=== PATIENT | female | born 1940 | race Caucasian/White ===

== ENCOUNTER 2025-06-05 09:39 | Inpatient (IN) | payer MEDICARE, BC, SELFPAY ==
--- OUTSIDE RECORDS SUMMARY | 2023-10-21 06:00 | XMS_ITS | Continuity of Care Document ---
Author Organization [facility] Address [address] [place] [address] BRITTANY Hoover [address] Phone Care Team Providers Care Gasoline Engine Inspector Name Role Phone Lina Hinojosa DO Unavailable Unavailable Allergies, Adverse Reactions, Alerts Substance Reaction Status Criticality No Known Allergies Active No Inform ation Medications Medication Instructions Dosage Effective Dates (start - stop) Status Comments TYLENOL (unknown strength) take 1 tablet by oral route every 4 hours as needed Not Available - Active tramadol 50 mg tablet take 1 tablet by ORAL route 3 times every day max 3/day - No Longer Active Procedures Procedure Date INJECT TRIGGER POINTS, =/> 3 Betamethasone acet sod phosp INJ TRIGGER POINT, 09/01 MUSCL Betamethasone acet sod phosp OFFICE/OUTPATIENT VISIT, EST INJ TRIGGER POINT, 09/01 MUSCL OFFICE/OUTPATIENT VISIT, NEW Advance Directives Directive Yes / No Effective Date File Name No Information Encounters Encounter Description Practice Location Reason(s) For Visit Diagnoses Date Provider Providers Copied on Encounter [facility], [address] [facility] [place], [id number], [place] tel:[phone] [facility] [place] Myalgia, other site [place]ish [place]. [address] [facility] [place], [id number] , [place]. tel:[phone] Referring Provider: Zaki Joaquin, [address] [place], [address] . tel:[phone] OFFICE/OUTPAT IENT VISIT, [facility], [address] [facility] [place], [id number], [place] tel:[phone] [facility] [place] Flank pain (chief complaint) Pain in thoracic spineMyalgia, other siteIntercostal painOther mcfp (current) drug therapyOther spondylosis, lumbar regionChronic kidney disease, unspecified 3 Hinojosa Lina. [address] [facility] [place], [id number] , [place]. tel:[phone] Referring Provider: Zaki Joaquin, [address] [facility] [place], [address] . tel:[phone] OFFICE/OUTPAT IENT VISIT, [facility], [address] [facility] [place], [id number], [place] tel:[phone] [facility] Flank pain (chief complaint) Pain in thoracic spineIntercostal painOther mcfp (current) drug therapyMyalgia, other siteLow back pain 3 Hinojosa Lina. [address] [place], [id number] , [place]. tel:[phone] Referring Provider: Zaki Joaquin, [address] [place], [address] . tel:[phone] Family History Family Member Type Diagnosis Age At Onset No Information Payers Payer name Insurance type Covered republican ID Jairon uriostegui(s) Medicare MB [id number] Social History Type Description Quantity Date Captured Comments Alcohol Use Details Unknown Caffeine Use Details Unknown Tobacco Use Status No Information Smoking Status No Information Sex Female Chief Complaint And Reason For Visit No Information Reason For Referral Reason For Referral No Information Plan Of Treatment Date Type Action Status Goal Weight. Due on d ue Goal Medication Reconciliation. D ue on due Goal Tobacco Use. Due on 024 due Goal Update Social History. Due o n due Goal Zoster vaccine (1st). Due on due Goal PHQ-9. Due on du e Goal Unhealthy drug use screening . Due on due Goal Height. Due on d ue Goal Review Allergy List. Due on due Goal Weight. Due on d ue Goal Medication Reconciliation. D ue on due Goal PHQ-9. Due on du e Goal Height. Due on d ue Goal Zoster vaccine (1st). Due on due Goal Unhealthy drug use screening . Due on due Goal Review Allergy List. Due on due Goal Tobacco Use. Due on 023 due Goal Update Social History. Due o n due Goal Unhealthy drug use screening . Due on due Goal Weight. Due on d ue Goal Medication Reconciliation. D ue on due Goal PHQ-9. Due on du e Goal Review Allergy List. Due on due Goal Zoster vaccine (1st). Due on due Goal Update Social History. Due o n due Goal Height. Due on d ue Goal Tobacco Use. Due on 023 due History Of Present Illness Encounter Date Complaint History Of Prese nt Illness Flank pain Pain level is 10 . Duration is chronic. The problem occurs constantly and has not changed. Location of pain is right flank and R ribs. Symptom is aggravated by bending/stooping and movement. There is radiation to the back. Relieving factors include raising arms above head. Pertinent negatives include chills, diarrhea, dysuria, fever, nausea and vomiting. Comments: Manuel marcelino is an 82 y/o female here for her initial follow up regarding gradually worsening right rib pain that started 6 years ago following a slip and fall on ice. Primary pain is located under her right ribs along right flank/mid back and is described as constant with intermittent sharp spasms. Only improves when arms are raised above her head. Reports her pain has been the same since [facility]. S/p TPI's [facility], notes she felt 80% relief for only about 30 min and then her spasms returned. Feels the injections were in her painful spot though. She recently completed her lumbar MRI at [facility] as ordered [facility], inquires about results. Notes she does have kidney disease, but has been stable and having no symptoms. Not currently established with a marine oiler. No other concerns today. Flank pain Onset: sudden. P ain level is 8. Duration is chronic. The problem occurs constantly and is getting worse. Location of pain is right flank. Symptom is aggravated by movement. There are no relieving factors. Pertinent negatives include diarrhea, dysuria and fever. Comments: Manuel marcelino is an 82 y/o female here for initial consult regarding gradually worsening right rib pain that started 6 years ago following a slip and fall on ice, referred by a friend. Notes during the fall, she fell straight back and landed on upper back and right shoulder causing a rotator cuff tear, did not hit her head. Endorses she was not evaluated after the fall as her was going through open heart surgery. Her primary pain is located under her right rib along right flank and is described as constant with intermittent sharp spasms. Does not wrap around to front and denies any numbness. Pain has been making sleep difficult due to positional pain. She has only been seen in the ER when pain flares ups. Has never been evaluated by a specialist. Reports she did have a prior MRI several years ago due to nerve pain she was having in back. No recent imaging. She has been going to a chiropractor intermittently with some relief, but relief is very temporary. Also doing acupuncture. She completed one session of PT at her 's alf, although her 4 weeks ago and she did not return. Tearful when discussing. She has been doing home exercises that she learned during her session.Notes she's had SE's with a lot of medications. She is currently managing her pain with Tylenol, takes sparingly due to GI upset. Also cannot take NSAID's due to issues with bleeding. She did try gabapentin in the past, but made her feel sick. She had good relief with oxycodone 5 mg at max 1/day that was prescribed after an ER visit for 30 days. She is not interested in being on medications. Additionally states she's had her bone density tested and was told it is similar to an 18 year old, no osteopenia or osteoporosis. Patient is interested in possible injection options we have to offer. No other concerns today. Functional Status Date Functional Assessmen t No Information Instructions Date Instruction Additional Infor mari No Information Assessments Type Assessment Date assessment Myalgia, other site Patient Care Teams Name Effective Dates (start - stop) Status Members No Information
--- OUTSIDE RECORDS SUMMARY | 2023-10-21 06:00 | XMS_ITS | Continuity of Care Document ---
Author Organization [facility] Address [address] [place] [address] BRITTANY Hoover [address] Phone Care Team Providers Care Cracker Off Name Role Phone Lina Hinojosa DO Unavailable [...] Diagnoses Date Provider Providers Copied on Encounter [facility], [address] [facility] [place], [id number], [place] tel:[phone] [facility] [place] Myalgia, other site Ashish [place]. [address] [facility] [place], [id number] , [place]. tel:[phone] Referring Provider: Zaki Joaquin, [address] [place], [address] . tel:[phone] OFFICE/OUTPAT IENT VISIT, [facility], [address] [facility] [place], [place], [id number], [place] tel:[phone] [facility] [place] Flank pain (chief complaint) Pain in thoracic spineMyalgia, other siteIntercostal painOther long-term (current) drug therapyOther spondylosis, lumbar regionChronic kidney disease, unspecified 3 Hinojosa Lina. [address] [facility] [place], [id number] , [place]. [phone] Referring Provider: Zaki Joaquin, [address] [facility] [place], [address] . tel:[phone] OFFICE/OUTPAT IENT VISIT, [facility], [address] [facility] [place], [id number], [place] tel:[phone] [facility] Flank pain (chief complaint) Pain in thoracic spineIntercostal painOther long-term (current) drug therapyMyalgia, other siteLow back pain 3 Hinojosa Lina. [address] [facility] [place], [id number] , [place]. tel:[phone] Referring Provider: Zaki Joaquin, [address] [facility] [place], [address] . tel:[phone] Family History Family Member Type Diagnosis Age At Onset No Information Payers Payer name Insurance type Covered alliance party ID Jairon uriostegui(s) Medicare MB [id number] Social History Type Description Quantity Date Captured Comments Alcohol Use Details Unknown Caffeine Use Details Unknown Tobacco Use Status No Information Smoking Status No Information Sex Female Chief Complaint And Reason For Visit No Information Reason For Referral Reason For Referral No Information Plan Of Treatment Date Type Action Status Goal Zoster vaccine (1st). Due on due Goal Update Social History. Due o n due Goal Tobacco Use. Due on 024 due Goal Medication Reconciliation. D ue on due Goal Weight. Due on d ue Goal Review Allergy List. Due on due Goal Height. Due on d ue Goal Unhealthy drug use screening . Due on due Goal PHQ-9. Due on du e Goal Update Social History. Due o n due Goal Tobacco Use. Due on 023 due Goal Weight. Due on d ue Goal Medication Reconciliation. D ue on due Goal PHQ-9. Due on du e Goal Height. Due on d ue Goal Zoster vaccine (). Due on due Goal Unhealthy drug use screening . Due on due Goal Review Allergy List. Due on due Goal Tobacco Use. Due on 023 due Goal Height. Due on d ue Goal Update Social History. Due o n due Goal Zoster vaccine (). Due on due Goal Review Allergy List. Due on due Goal PHQ-9. Due on du e Goal Medication Reconciliation. D ue on due Goal Weight. Due on d ue Goal Unhealthy drug use screening . Due on due History Of Present Illness Encounter Date Complaint History Of Prese nt Illness Comments: Manuel marcelino is an 82 y/o [...] her pain has been the same since [facility]. S/p TPI's [facility], notes she felt 80% relief for only about 30 min and then her spasms returned. Feels the injections were in her painful spot though. She recently completed her lumbar MRI at [facility] as ordered [facility], inquires about results. Notes she does have kidney disease, but has been stable and having no symptoms. Not currently established with a spinning machine tender. No other concerns today. Flank pain Pain level is 10 . Duration is chronic. The problem occurs constantly and has not changed. Location of pain is right flank and R ribs. Symptom is aggravated by bending/stooping and movement. There is radiation to the back. Relieving factors include raising arms above head. Pertinent negatives include chills, diarrhea, dysuria, fever, nausea and vomiting. Flank pain Onset: sudden. P ain level [...] one session of PT at her 's custodial, although her 4 weeks ago and she [...]
[2025-06-05] VITALS (50 sets, daily range): BP systolic 127–201; BP diastolic 55–95; PULSE 54–76; RESP 6–31; TEMP 35.6–36.8; O2SAT 96–100; BMI 22.0; BMI 22.1
--- OUTSIDE RECORDS SUMMARY | 2025-06-05 09:43 | XMS_ITS | Encounter Summary ---
Author Organization [facility] Address [address] [place] [address] Care Team Providers Care Hotel Or Motel Receptionist Name Role Phone Unavailable Primary Care Provider Unavailabl e Encounter Details Date Type Department Care Team (Late st Contact Info) Description 03/14/2025 Notes/Orders [facility] [address] [place] [address] Nomi Romero MD [address] [facility] [address] [place], [place] [address] Social History Tobacco Use Types Packs/Day Years Used Date Smoking Tobacco: Never Smokeless Tobacco: Never Comments Unknown Sex and Gender Information Value Date Recorded Sex Assigned at Not on file Legal Sex Female 7:12 AM CDT Gender Identity Not on file Sexual Orientation Not on file documented as of this encounter Plan of Treatment Not on file documented as of this encounter Visit Diagnoses Not on filedocumented in this encounter
--- OUTSIDE RECORDS SUMMARY | 2025-06-05 09:44 | XMS_ITS | Clinical Summary ---
Author Organization [facility] Address [address] [place] [address]. [place] [address] Care Team Providers Care Export Freight Manager Name Role Phone [facility], [facility] Primary Care Provider Allergies Active Allergy Reactions Criticality Noted Date Comments Ciprofloxacin Cough 07/04/2010 Other reaction(s): Edema, Headache Codeine 08/06/2015 Other reaction(s): Hallucinations Codeine Sulfate 10/24/2012 hallucinate Metoprolol Cough 12/22/2014 Other reaction(s): Headache Morphine Nausea and Vomiting 10/21/2004 Morphine Sulfate 10/24/2012 hallucinate Thimerosal (Thiomersal) Other (See Comments) 06/24/2016 Flu like symptoms Medications atenolol (TENORMIN) 100 MG tablet Take 100 mg by mouth daily Active triamterene-HCT Z (DYAZIDE) 37.5-25 MG capsule Take 1 capsule by mouth every morning Active levothyroxine (SYNTHROID/LEVO THROID) 112 MCG tablet Take 112 mcg by mouth daily Active atorvastatin (LIPITOR) 20 MG tablet Take 20 mg by mouth daily Active Active Problems Problem Noted Date Diagnosed Date Pyelonephritis 11/02/2021 Acute cystitis without hematuria 11/02/2021 Ureterolithiasis 09/29/2021 Resolved Problems Problem Noted Date Diagnosed Date Resolved Date Dupuytren's contracture of hand 08/14/2011 09/15/2011 Pain in hand 08/14/2011 09/15/2011 Stiffness of joint, not else where classified, hand 08/14/2011 09/15/2011 Reflex sympathetic dystrophy of upper extremity 08/14/2011 09/15/2011 Overview (06/01/2015): Problem list name updated by automated process. Provider to review Other postprocedural status(V45.89) 08/14/2011 09/15/2011 Family History Medical History Relation Comments Heart Disease Brother Heart Disease Father Hypertension Mother Relation Status Comments Brother Father Mother Social History Tobacco Use Types Packs/Day Years Used Date Smoking Tobacco: Never Smokeless Tobacco: Never Alcohol Use Standard Drinks/Week Comments No 0 (1 standard drink = 0.6 oz pur e alcohol) Adolescent Education Answer Date Record ed Getting School Help Needed Not on file 05/31 Comments No Sex and Gender Information Value Date Recorded Sex Assigned at Not on file Legal Sex Female 4:24 AM PUBLIC RELATIONS OFFICER Gender Identity Not on file Sexual Orientation Not on file Last Filed Vital Signs Vital Sign Reading Time Taken Comments Blood Pressure 173/83 04/20/2023 2:20 PM CDT Pulse 62 04/20/2023 2:20 PM CDT Temperature 36.6 C (97.9 F) 04/20/2023 2:20 PM CDT Respiratory Rate 18 04/20/2023 9:03 AM CDT Oxygen Saturation 100% 04/20/2023 2:20 PM CDT Inhaled Oxygen Concentration - - Weight 73.1 kg (161 lb 3.2 oz) 11/02/2021 9:03 P M PUBLIC RELATIONS OFFICER Height 172.7 cm (5' 8) 11/02/2021 9:03 PM PUBLIC RELATIONS OFFICER Body Mass Index 24.51 11/02/2021 9:03 PM PUBLIC RELATIONS OFFICER Plan of Treatment Health Maintenance Due Date Last Done Comments ADVANCE CARE PLANNING 1940 ANNUAL REVIEW OF HM ORDERS 1940 DEXA 1940 LIPID 1940 TSH W/FREE T4 REFLEX 1940 FALL RISK ASSESSMENT 2005 RSV VACCINE (1 - 1-dose 75+ series) 2015 DTAP/TDAP/TD VACCINE (2 - Td or Tdap) 12/10/2022 12/10/2012, 10/14/2005, 08/31/1995 MEDICARE ANNUAL WELLNESS VISIT 02/10/2024 02/09/2023, 02/04/2022, 01/18/2021 PHQ-2 (once per calendar year) 2024 COVID-19 VACCINE (2024-2 6 season) 2025 06/02/2022, 12/26/2020, 12/05/2020 INFLUENZA VACCINE (#1) 2025 06/30/2007 PNEUMOCOCCAL VACCINE 50+ YEARS Completed 02/09/2018, 12/18/2014, 10/20/2007 ZOSTER VACCINE Completed 07/30/2018, 05/19/2018, 10/29/2009 HPV VACCINE (No Doses Required) Completed MENINGITIS VACCINE Aged Out No longer eligible based on patient's age to complete this topic Medical Devices Explanted Type Area Supervisory Cbp Officer Device Identifier Shelf Expiration Date Model / Serial / Lot Stent Ureteral Polaris Ultra [id number] - [id number] Implanted:Qty: 1 on 09/30/2021 by Darryl Valenzuela MD at [facility] Explanted:Qty: 1 on 10/11/2021 at [facility] Stent Right: Ureter [employer] 07/23/2024 [id number] / / [id number] [place] [id number] [facility] [place] [address] Advance Directives For more information, please contact: [phone] * Full Code (Latest Code Status on File) Date Activated Date Inactivated Comments 11/02/2021 9:07 PM 11/04/2021 2:25 PM All basic and advanced life-sustaining interventions are performed as appropriate Question Answer Comments Code status determined by: Discussion with celeste nt/ legal decision maker * Full Code Date Activated Date Inactivated Comments 09/30/2021 1:57 AM 09/30/2021 7:33 PM All basic an d advanced life-sustaining interventions are performed as appropriate Question Answer Comments Code status determined by: Discussion with celeste nt/ legal decision maker Care Teams Export Freight Manager Relationship Specialty Start Date End Date [facility], [address] [address] PCP - General 04/20/23
--- OUTSIDE RECORDS SUMMARY | 2025-06-05 09:44 | XMS_ITS | Clinical Summary ---
Author Organization [facility] Address [address], [place] [address] Care Team Providers Care As400 Operator Name Role Phone Unavailable Primary Care Provider Unavailabl e Source Comments You are receiving this document as you are listed as the primary care provider,follow-up provider, or the patient has been referred to you for consultation.This is in compliance with the Medicare and[facility] Clinicca[facility] EHR Incentive Program,which states Providers who transition their patient to another setting of careor provider of care or refers their patient to another provider of care shouldprovide summary care record for each transition of care or referral. [id number] Allergies Active Allergy Reactions Criticality Noted Date Comments Codeine 08/06/2015 Morphine 08/06/2015 Medications ATENolol (AKA TENORMIN) 100 MG tablet Take 1 Tablet (100 mg) by mouth daily. 08/06/2015 Active simvastatin (AKA ZOCOR) 10 MG tablet Take 1 Tablet (10 mg) by mouth daily at bedtime. 08/06/2015 Active levothyroxine (AKA SYNTHROID) 100 MCG tablet Take 1 Tablet (100 mcg) by mouth daily. 08/06/2015 Active hydrochlorothia zide (AKA HYDRODIURIL) 12.5 MG tablet Take 1 Tablet (12.5 mg) by mouth daily. 08/06/2015 Active HYDROcodone-melisa taminophen (NORCO) 5-325 MG tablet Take 1-2 Tablets by mouth every 6 hours as needed. 12 Tablet 11/14/2024 Active Active Problems Problem Noted Date Diagnosed Date Dupuytren's contracture of right hand 07/21/2017 Shoulder tendinitis 08/06/2015 Bicipital tendinitis of shoulder 08/06/2015 Acromioclavicular joint arthritis 08/06/2015 Encounters Date Type Department Care Team Description 03/14/2025 Notes/Orders [facility] [address] [place] [address] Nomi Romero MD from Last 3 Months Social History Tobacco Use Types Packs/Day Years Used Date Smoking Tobacco: Never Smokeless Tobacco: Never Comments Unknown Sex and Gender Information Value Date Recorded Sex Assigned at Not on file Legal Sex Female 7:12 AM CDT Gender Identity Not on file Sexual Orientation Not on file Last Filed Vital Signs Vital Sign Reading Time Taken Comments Blood Pressure 163/62 11/14/2024 9:31 AM CDT RLE Pulse 63 11/14/2024 9:31 AM CDT Temperature 36.5 C (97.7 F) 11/14/2024 8:52 AM CDT Respiratory Rate 16 11/14/2024 9:31 AM CDT Oxygen Saturation 99% 11/14/2024 9:31 AM CDT Inhaled Oxygen Concentration - - Weight 67.4 kg (148 lb 9.6 oz) 11/14/2024 6:11 A M CDT Height 172.7 cm (5' 8) 07/21/2017 1:52 PM WIRE FRAME LAMP SHADE MAKER Body Mass Index 22.59 07/21/2017 1:52 PM WIRE FRAME LAMP SHADE MAKER Plan of Treatment Health Maintenance Due Date Last Done Comments Medicare Annual Wellness Visit 1940 RSV Vaccine (1 - 1-dose 75+ series) 2015 COVID-19 Vaccine ( - 2024-2 6 season) 2025 06/02/2022, 12/26/2020, 12/05/2020 Influenza Vaccine (#1) 2025 DTaP/Tdap/Td Vaccine (3 - Tdap) 11/10/2034 11/10/2024, 12/10/2012 Pneumococcal Vaccine 50+ Yrs Completed 07/2018, 12/18/2014, 10/20/2007 Zoster/Shingles Vaccine Completed 07/30/20 18, 05/19/2018, 10/29/2009 Dexa Completed 02/15/2024, 02/03/2017 HepA Vaccine Aged Out No longer eligi ble based on patient's age to complete this topic HepB Vaccine Aged Out No longer eligi ble based on patient's age to complete this topic Hib Vaccine Aged Out No longer eligi ble based on patient's age to complete this topic MCV4 Vaccine Aged Out No longer eligi ble based on patient's age to complete this topic Meningococcal B Vaccine Aged Out No l onger eligible based on patient's age to complete this topic Insurance [facility] MEDICARE SUPPLEMENT MEDICARE [facility] MEDICARE SUPPLEMENT MEDICARE Advance Directives * Full Code (Latest Code Status on File) Date Activated Date Inactivated Comments 11/14/2024 7:11 AM 11/14/2024 11:49 AM
--- OUTSIDE RECORDS SUMMARY | 2025-06-05 09:44 | XMS_ITS | Patient Health Record ---
Author Organization [facility] Address [address] [place] [address] Care Team Providers Care Reproduction Artist Name Role Phone Cheri Ellen Primary Care Provider DAVINA Akins Unavailable [phone] Win Siu Unavailable Unavailable Allergies Allergen (clinical drug ingredient) Drug/Non Drug Allergy documented on EMR Reaction Allergy Type Onset Date Status Codeine Phosphate Unknown Drug Allergy Active Morphine Sulfate Unknown Drug Allergy Active Reason For Referral No Information Medications Medication SIG (Take, Route, Frequency, Duration) Notes Start Date End Date Status Levothyroxine Sodium 112 MCG Tablet 1 tablet in the morning on an empty stomach Orally Once a day; Duration: 30 day(s) Active Simvastatin 20 MG Tablet 1 tablet in the evening Orally Once a day; Duration: 30 day(s) Active Aspir-Low 81 MG Tablet Delayed Release 1 tablet Orally Once a day; Duration: 30 day(s) Active Atenolol 100 MG Tablet 1 tablet Orally O nce a day; Duration: 30 day(s) Active Triamterene-HCTZ 37.5-25 MG Tablet 1 tablet in the morning Orally Once a day; Duration: 30 day(s) Active Social History Tobacco Use: Social History Observation Description Date Details (start date - stop date) Never Smoker NA - NA Social History : Social Info Question Answer Notes How often do you consume alcohol? Answer: never Recreational drug use Social Info Question Answer Notes Did you ever use recreational drugs? Answer: No Tobacco Use: Social Info Question Answer Notes Tobacco use/smoking Are you a nonsmoker Plan Of Treatment No Information Insurance Providers Payer Name Payer Address Payer Phone Subscriber Number Group Number Insured Name Patient Relationship to Insured Coverage Start Date Coverage End Date MEDICARE [address] [place] [address] [id number] Cecilia Max Self - patient is the insured 6 [facility] MEDIC[facility] [address] [place], [place] [id number] Cecilia Max Self - patient is the insured Medical (General) History Medical History History ICD Code Cataracts Breast cancer Surgical History Surgery Date(Month/Year) Tonsillectomy Appendectomy Mastectomy Hospitalization History Reason Date(Month/Year) See above
--- NOTE | 2025-06-05 09:52 | ED_ITS ---
HPI - General Adult General Date Seen: 06/05/25 Chief complaint: Weakness Stated complaint: Weak, trouble breathing, jaw hurts, dizzy, vision Time Seen by Provider: 06/05/25 09:52 History of Present Illness HPI narrative: 84 yo F with a past medical history of pulmonary fibrosis, chronic kidney disease, hypothyroidism, hyperlipidemia, prediabetes, history of breast cancer in 1988, right lung calcified granuloma stable since 1991. Patient notes multiple symptoms including bilateral pulsing and pounding in her ears (sounds like pulsatile tinnitus) that is been present for the past several weeks, also sometimes flashing lights in her vision, most notable in the mornings, also a feeling of shortness of breath like her oxygen is low (although her oxygen typically runs 100%). She was actually due to have a and I checked this morning at the eye doctor but came here to the ER in [place] instead because she feels like she is more short of breath than she has been. History from the patient is little bit difficult to get because she is significantly anxious and jumping around. It sounds like she has been generally healthy. She had her checkup with her doctor in January or February and was healthy at that time. She has no known history of coronary disease, vascular disease, anemia, cancer, diabetes, or lung disease. Beginning about 7 weeks or so ago she started noticing symptoms of a pulsing sound in her her ears. However with clarification it sounds like it is mostly in her left ear, not her right. Not really pain, just a whooshing pulsing sound. It has been getting worse and in particular got worse overnight last night. She has already had MRIs that were apparently normal-see below. She does not really have headache. Sometimes she gets cramps of pain in the left side of her neck, but that is not occurring lately. She does note that for the past few weeks when she wakes up in the morning she gets kind of a dizzy feeling when she stands up and gets flashing lights affecting both of her eyes that tend to happen for about less than half an hour after she 1st wakes up. Her eyes are normal the remainder of the day. She had schedule an appointment to see the local eye clinic today because of the feeling of weakness and discomfort in her jaw and chest. She also notes that she has had progressively worsening dyspnea on exertion. [place] and has to walk about an 8th of a mi out to her mailbox. However for the past few weeks she has not been able to do so. She has not even tried because she knows she would gets so short of breath she would collapse. It has gotten to the point now where she can not even really walk up a full flight of stairs without getting very weak and short of breath. She has not really had any chest pain, cough. No swelling in her legs. This morning at about 8 or 830 when she was sitting in a chair she just felt a funny feeling in her chest and her jaw felt weak on both sides and she just felt weaker than normal. She was worried that her heart might stop her that she was not getting enough oxygen. She came here to the ER. She has not had symptoms like that up until this morning. Nothing else changed overnight. No orthopnea. No new swelling in her legs. No abdominal pain. No back pain. No fever. No cough. Per [facility] medical records Saw Dr. Cardozo in February for an annual checkup. Per that note she has intermittent back pain less severe than last year. Uses tramadol p.r.n.. Has known thoracic degenerative disc disease. Blood pressure readings at home between 130 and 134 systolic. On Maxzide and atenolol. Memory, hearing, vision normal. Had a visit with the [facility] clinic on 05/15. Complaints included shortness of breath, throbbing in her head for about 2 weeks, fatigue. Poor sleep .. Per note... 84 y.o. female with h/o HTN, pulmonary fibrosis, stage 3a CKD, and prediabetes, who presents with shortness of breath that started 2 weeks ago. She has shortness of breath when she walks up a few stairs or walking to her mailbox. At the top of the stairs, she feels dizzy for a few seconds. After walking, her arms and legs feel weird and weak. She does not have shortness of breath at rest, can speak normally in sentences, and can lie down. Laying down helps with her breathing. She feels like she has a brick on her head. She is nauseated, tired, and has pain behind her left ear. There is a pulsating sound in her left ear that has been constantp. Labs from 05/15 Sodium 139, potassium 3.5, chloride 100, bicarb 30, BUN 31, creatinine 1.29 (pre vious baseline 1.08) glucose 148 D-dimer 0.3 ProBNP 389 Chest x-ray 05/15 IMPRESSION: Chronic COPD. No acute infiltrate or CHF. MRI brain 05/20 IMPRESSION: 1. No radiographic evidence of acute intracranial abnormalities. 2. Mild supratentorial white matter changes that are non-specific, but statistically most likely related to chronic small vessel ischemic disease. IMPRESSION: Unremarkable MRA of the head as far as visualized. IMPRESSION: Unremarkable MRA of the neck as far as visualized. Most recent hemoglobin in her chart was from 11/10/2024. On that date white count was 5, hemoglobin was 12, platelet count was 122. Related Data Home Medications ?Medication ?Instructions ?Recorded ?Confirmed atenolol 100 mg tablet 100 mg PO DAILY 06/05/2502/22 levothyroxine 125 mcg tablet 125 mcg PO DAILY 06/05/25 06/05/25 ondansetron 4 mg disintegrating 4 mg PO Q8H PRN nausea /vomiting 06/05/25 06/05/25 tablet tramadol 50 mg tablet 50 mg PO DAILY PRN severe pa in 06/05/25 06/05/25 triamterene 37.5 1 tab PO DAILY 06/05/2502/22 mg-hydrochlorothiazide 25 mg tablet Allergies Allergy/AdvReac Type Severity Reaction Status Date / Time Opioids - Morphine Analogues AdvReac Intermediate Verified 06/05/25 10:10 codeine AdvReac Verified 06/05/25 10:10 Exam Narrative: Exam Narrative: Constitutional: Appears well-developed and well-nourished. Alert. Conversant. Non toxic. HENT: Head: Atraumatic. No depressed skull fracture, Raccoon Eyes, Edmond's sign, or hemotympanum. Face normal. TMs normal No pulsatile swelling over the temporal arteries. TMs normal. Mastoids normal. Pinna are normal bilaterally. Nose: Nose normal. Mouth/Throat: Oral mucosa is clear and moist. no trismus. Pharynx normal. To nsils symmetric. No tonsillar enlargement, erythema, or exudate. No pain with opening and closing her jaw. No TMJ pain. Eyes: Conjunctivae pale. EOM normal. Pupils equal, round, and reactive to light. No scleral icterus. Neck: Normal range of motion. Neck supple. No tracheal deviation present. Cardiovascular: Normal rate, regular rhythm. No gallop. No friction rub. No murmur heard. Symmetric radial artery pulses Pulmonary/Chest: Effort normal. No stridor. No respiratory distress. No wheezes. No rales. No rhonchi . No tenderness. Abdominal: Soft. Bowel sounds normal. No distension. No mass. No pulsatile mass. No tenderness. No rebound. No guarding. No CVA tenderness. Musculoskeletal: RUE: Normal range of motion. No tenderness. No deformity LUE: Normal range of motion. No tenderness. No deformity RLE: Normal range of motion. No edema. No tenderness. No deformity LLE: Normal range of motion. No edema. No tenderness. No deformity Lymph: No cervical adenopathy. Neurological: Mental status normal. Attention normal. Alert and oriented x3. GCS 15. Memory normal. Speech fluent. Cognition normal. Cranial Nerves intact II-XII except I did not formally test gag or visual acuity. Normal strength of the muscles of mastication. No signs of facial droop. I do not see any progressive weakness/ here suggesting myasthenia gravis EOMI. Palate elevates symmetrically and tongue protrudes in the midline. Strength: 5/5 trapezius on the right and left 5/5 deltoid on the right and left 5/5 biceps on the right and left 5/5 triceps on the right and left 5/5 automatic presser on the right and left 5/5 thumb opposition on the right and le ft 5/5 finger abduction on the right and le ft 5/5 hip flexors (L3) on the right and le ft 5/5 quadriceps (L4) on the right and lef t 5/5 tibialis anterior on the right and l eft 5/5 EHL (L5) on the right and left 5/5 gastrocnemius (S1) on the right and left 5/5 hamstring on the right and left Sensation intact to light touch in both upper extremities (C4-T1) Sensation intact to light touch in Both lower extremities (L4-S1). Finger to nose and coordination normal. Gait not assessed due to weakness Skin: Skin is warm and dry. No rash noted. No pallor. Normal capillary refill. Psychiatric: Normal mood. Anxious but very polite. Const: Vital Signs, click to edit/add: Vital Signs - 24 hr 06/05/25 10:03 06/05/25 10:07 06/05/25 10:15 Temperature 97.4 F L Pulse Rate 60 64 Pulse Rate [Pulse Oximeter] 73 Respiratory Rate 20 6 L 14 Blood Pressure 190/80 H Blood Pressure [Ri ght Upper Arm] 201/95 H Pulse Oximetry 100 99 100 [facility] Room Air 06/05/25 10:30 06/05/25 10:32 06/05/25 10:33 Temperature Pulse Rate 64 62 63 Pulse Rate [Pulse Oximeter] Respiratory Rate 10 L 20 31 H Blood Pressure 171/65 H Blood Pressure [Ri ght Upper Arm] Pulse Oximetry 100 100 100 [facility]xygen Delivery [facility] 06/05/25 10:45 06/05/25 11:00 06/05/25 11:02 Temperature Pulse Rate 59 L 56 L 54 L Pulse Rate [Pulse Oximeter] Respiratory Rate 7 L 18 16 Blood Pressure 156/58 H Blood Pressure [Ri ght Upper Arm] Pulse Oximetry 99 100 99 Oxygen Delivery [facility] 06/05/25 11:03 06/05/25 11:15 06/05/25 11:30 Temperature Pulse Rate 55 L 60 64 Pulse Rate [Pulse Oximeter] Respiratory Rate 14 11 L 20 Blood Pressure Blood Pressure [Ri ght Upper Arm] Pulse Oximetry 99 99 100 Oxygen Delivery [facility] 06/05/25 11:32 06/05/25 11:45 06/05/25 12:00 Temperature Pulse Rate 66 64 Pulse Rate [Pulse Oximeter] Respiratory Rate 19 16 25 H Blood Pressure 170/71 H Blood Pressure [Ri ght Upper Arm] Pulse Oximetry 100 99 Oxygen Delivery [facility] 06/05/25 12:02 06/05/25 12:03 06/05/25 12:15 Temperature Pulse Rate Pulse Rate [Pulse Oximeter] Respiratory Rate 8 L 15 13 Blood Pressure 156/74 H Blood Pressure [Ri ght Upper Arm] Pulse Oximetry Oxygen Delivery [facility] 06/05/25 12:30 06/05/25 12:32 06/05/25 12:45 Temperature Pulse Rate Pulse Rate [Pulse Oximeter] Respiratory Rate 13 16 14 Blood Pressure 140/88 H Blood Pressure [Ri ght Upper Arm] Pulse Oximetry Oxygen Delivery [facility] 06/05/25 13:00 06/05/25 13:02 06/05/25 13:05 Temperature 96.6 F L 96.6 F L Pulse Rate 65 61 62 Pulse Rate [Pulse Oximeter] Respiratory Rate 13 14 16 Blood Pressure 157/61 H 157/61 H Blood Pressure [Ri ght Upper Arm] Pulse Oximetry 98 98 99 Oxygen Delivery [facility] Room Air 06/05/25 13:22 Temperature 97.2 F L Pulse Rate 62 Pulse Rate [Pulse Oximeter] Respiratory Rate 16 Blood Pressure 147/61 H Blood Pressure [Ri ght Upper Arm] Pulse Oximetry 97 Oxygen Delivery [facility] Room Air Course Vital Signs Vital signs: Initial Vital Signs Temperature 97.4 F L 06/05/25 10:03 Temperature Source Temporal Artery Scan 06/05/25 10:03 Pulse Rate 73 06/05/25 10:03 Respiratory Rate 20 06/05/25 10:03 Blood Pressure 201/95 H 06/05/25 10:03 Blood Pressure Mean 130 H 06/05/25 10:03 Blood Pressure Position Sitting 06/05/25 10:03 Pulse Oximetry 100 06/05/25 10:03 Oxygen Delivery Method Room Air 06/05/25 10:03 Vital Signs Temperature 97.4 F L 06/05/25 10:03 Pulse Rate 73 06/05/25 10:03 Respiratory Rate 20 06/05/25 10:03 Blood Pressure 201/95 H 06/05/25 10:03 Pulse Oximetry 100 06/05/25 10:03 Oxygen Delivery Method Room Air 06/05/25 10:03 Temperature 97.2 F L 06/05/25 13:22 Pulse Rate 62 06/05/25 13:22 Respiratory Rate 16 06/05/25 13:22 Blood Pressure 147/61 H 06/05/25 13:22 Pulse Oximetry 97 06/05/25 13:22 Oxygen Delivery Method Room Air 06/05/25 13:22 Medications Administered Medications: Generic Name Dose Route Start Last Admin Trade Name Freq PRN Reason Stop Dose Admin Sodium Chloride 250 ml 06/05/25 11:23 06/05/25 13:11 0.9 % Sodium Chloride 500 Ml IV 06/06/25 23:59 250 ml ONCE PRN Administration Discontinued Medications Generic Name Dose Route Start Last Admin Trade Name Freq PRN Reason Stop Dose Admin Aspirin 324 mg 06/05/25 10:42 06/05/25 10:48 Aspirin 81 Mg Tab.Chew PO 06/05/25 10:43 324 mg ONCE ONE Administration Sodium Chloride 1,000 mls @ 1,000 mls/hr 06/05/25 10:45 06/05/25 11:51 0.9 % Sodium Chloride 1000 Ml IV 06/05/25 11:44 Infused .Q1H PEACE Infusion Methylprednisolone Sodium Succinate 125 mg 06/05/25 11:41 06/05/25 11:49 Methylprednisolone Sod Succ 62.5 Mg/Ml (125) IVP 06/05/25 11:42 125 mg ONCE ONE Administration Medical Decision Making MDM Narrative Medical decision making narrative: 84-year-old female with a very complicated presentation to the ER. She has multiple complaints that are co mingled. These include pus out tinnitus mostly of her left ear for the past 7 or 8 weeks, progressively worsening dyspnea on e xertion, lightheadedness and presyncope with flashing lights in her eyes, as well as a funny feeling of chest discomfort and jaw pain this morning. 1. Cardiovascular. Patient has no known history of coronary artery disease, stents. No history of CHF. Chest x-ray done in the [facility] a few weeks ago was clear and showed no evidence for pulmonary edema. BNP was normal previously. She does not have any murmurs on my exam to suggest that she is developing a severe aortic stenosis. With her dyspnea on exertion consider possible progressively worsening CHF. Blood pressure is 200/95 but came down to about 156/58 when she was settled. I think a lot of her hypertension was related to significant anxiety at the time of presentation.be Repeat chest x-ray today shows clear lungs. I do not see any pulmonary edema. N terminal proBNP is fairly low at 323. She is having substernal chest discomfort and jaw weakness and pain this morning. Consider angina. EKG shows nonspecific T-wave flattening but no ST segment elevation or depression. Initial troponin is normal at 0.01. Given time since onset of her chest symptoms this morning , we did check delta troponins they are normal. At this point no clear evidence for ACS. Suspect that her symptoms are driven by her anemia. May need further workup with follow-up stress testing or ECHO depending on response to transfusion. 2. Pulmonary. Does have several weeks of progressively worsening dyspnea on exertion. She says she has gotten so short of breath this that she really can not go of more than 6 steps or go out to check her mail because she gets so we cannot of breath. She had a chest x-ray a few weeks ago in her doctor told her that she might have COPD. However she does not really have any known history of asthma/COPD. No wheezing or coughing. Lung sounds clear on my auscultation today. Chest x-ray shows no evidence for pneumothorax or ruptured bleb. No evidence for pulmonary edema. No focal infiltrate to suggest pneumonia. Consider possible PE. Screening D-dimer was normal in clinic a couple weeks ago. Given progressive worsening dyspnea we did double check a D-dimer today and it is 0.83 which when adjusted for age is low risk. Therefore will hold off on CT scan. 3. Hematologic. CBC shows pancytopenia today with a white count of 3.8, hemoglobin critically low at 6.4, and thrombocytopenia with a platelet count 50. Unclear etiology. Patient denies any recent black or bloody stools. Hemoccult negative. Suspect this may be a bone marrow deficiency or myelodysplasia. 4. Vascular/autoimmune. With the patient's pulsatile tinnitus and report of episodic disturbance of vision, consider a vasculitis such as giant cell arteritis or temporal arteritis. ESR is elevated at 86. CRP is low. empiric dose of Solu-Medrol here in the ER. I suspect that her visual symptoms are probably related to her anemia. If they get better after transfusion, she probably does not need any further workup for vasculitis 5. Renal/electrolytes. BUN and creatinine normal. Sodium mildly low at 134. 6. Infectious disease. No fever or clear evidence for sepsis. Screening lactic acid is elevated at 3.2 which I think reflects anemia and dehydration rather than the presence of an acute infection or sepsis. 7. Psychiatric. There is a significant under pinning of anxiety when the patient presented which made it difficult for even describe sequence of her symptoms. With effort were able to get calm and more detailed history, above. This point I do not think anxiety is the primary cause of any of her symptoms. 8. GI. No abdominal pain. No recent black or bloody stools. Doubt GI bleeding. Screening occult blood stool here in the ER is negative. 9. Disposition. It is clear the patient will require hospitalization for transfusion and further workup. Discussed with our hospitalist, Dr. Golden. Lab Data Labs: Lab Results 06/05/25 06/05/25 06/05/25 Range/Units 10:05 10:10 11:43 WBC 3.88 L (4.50-11.00) K/uL RBC 1.62 L (4.00-5.20) m/uL Hgb 6.4 L* (12.0-16.0) gm/dL Hct 18.2 L (33.0-51.0) % MCV 112 H (80-100) fL MCH 40 H (26-34) pg MCHC 35 (32-36) gm/dL RDW Coeff of Edin 18.8 H (11.5-15.5) % Plt Count 50 L (140-440) K/uL Neut % (Auto) 10.7 L (42.0-72.0) % Lymph % (Auto) 55.2 H (20-44) % [place] % (Auto) 32.5 H (0.0-11.0) % Eos % (Auto) 1.0 (0.0-7.0) % Baso % (Auto) 0.3 (0.0-3.0) % Neut # (Auto) 0.40 L (1.7-7.0) K/uL Lymph # (Auto) 2.10 (0.90-2.90) K/uL [place] # (Auto) 1.30 H (0.00-0.90) K/UL Eos # (Auto) 0.00 (0.00-0.50) K/uL Baso # (Auto) 0.00 (0.00-0.30) K/uL Abs Immat Gran (auto) 0.00 (0.00-0.30) K/uL Imm/Tot Granulo (auto) 0.3 % Diff Slide Review Acceptable Review (Acceptable) ESR 86 H (2-20) mm/hr D-Dimer Quant (PE/DVT) 0.83 H (0.00-0.50) ug/ml Sodium 134 L (135-149) mmol/L Potassium 3.9 (3.6-5.1) mmol/L Chloride 99 (96-114) mmol/L Carbon Dioxide 25 (20-32) mmol/L Anion Gap 10 (7-15) mEq/L BUN 29 (7-30) mg/dL Creatinine 1.2 (0.5-1.5) mg/dL Estimated Creat Clear 35.20 Estimated GFR 45 ml/min Glucose 144 H (60-115) mg/dL Lactate 3.2 H (0.5-1.9) mmol/L Calcium 9.7 (8.4-10.6) mg/dL Troponin I (0.01-0.04) ng/mL C-Reactive Protein < 0.5 L (0.5-1.0) mg/dL NT-Pro-B Natriuret Pep 323 H (See Note) pg/mL Stool Occult Blood (Negative) POC Troponin I 0.01 (0.01-0.04) ng/ml Blood Type A Positive Antibody Screen NEGATIVE Crossmatch (AHG) See Detail 06/05/25 06/05/25 Range/Units 12:00 12:35 WBC (4.50-11.00) K/uL RBC (4.00-5.20) m/uL Hgb (12.0-16.0) gm/dL Hct (33.0-51.0) % MCV (80-100) fL MCH (26-34) pg MCHC (32-36) gm/dL RDW Coeff of Edin (11.5-15.5) % Plt Count (140-440) K/uL Neut % (Auto) (42.0-72.0) % Lymph % (Auto) (20-44) % [place] % (Auto) (0.0-11.0) % Eos % (Auto) (0.0-7.0) % Baso % (Auto) (0.0-3.0) % Neut # (Auto) (1.7-7.0) K/uL Lymph # (Auto) (0.90-2.90) K/uL [place] # (Auto) (0.00-0.90) K/UL Eos # (Auto) (0.00-0.50) K/uL Baso # (Auto) (0.00-0.30) K/uL Abs Immat Gran (auto) (0.00-0.30) K/uL Imm/Tot Granulo (auto) % Diff Slide Review (Acceptable) ESR (2-20) mm/hr D-Dimer Quant (PE/DVT) (0.00-0.50) ug/ml Sodium (135-149) mmol/L Potassium (3.6-5.1) mmol/L Chloride (96-114) mmol/L Carbon Dioxide (20-32) mmol/L Anion Gap (7-15) mEq/L BUN (7-30) mg/dL Creatinine (0.5-1.5) mg/dL Estimated Creat Clear Estimated GFR ml/min Glucose (60-115) mg/dL Lactate (0.5-1.9) mmol/L Calcium (8.4-10.6) mg/dL Troponin I < 0.01 (0.01-0.04) ng/mL C-Reactive Protein (0.5-1.0) mg/dL NT-Pro-B Natriuret Pep (See Note) pg/mL Stool Occult Blood Negative (Negative) POC Troponin I (0.01-0.04) ng/ml Blood Type Antibody Screen Crossmatch (AHG) Imaging Data Chest x-ray: My impression: Clear lungs. Radiologist's impression: IMPRESSION: No acute appearing thoracic findings. ECG Data Attestation: I personally reviewed and interpreted this ECG as follows: Interpretation: Sinus rhythm with first-degree AV block Rate 62 MT interval 224 Normal QRS axis. No ST segment elevation or depression. Nonspecific T-wave flattening leads 3, AVF, aVL, V1, V2. QT 428, QTC 434 Discharge Plan Discharge Clinical Impression: Anemia, Dyspnea, Tinnitus Prescriptions: No Action atenolol 100 mg tablet 100 mg PO DAILY levothyroxine 125 mcg tablet 125 mcg PO DAILY triamterene-hydrochlorothiazid 37.5-25 mg tablet 1 tab PO DAILY ondansetron 4 mg tablet,disintegrating 4 mg PO Q8H PRN (Reason: nausea/vomiting) tramadol 50 mg tablet 50 mg PO DAILY PRN (Reason: severe pain) Follow Up/Referrals: Iqra Cardozo DO [Primary Care Provider, Family Practice]
[2025-06-05 10:16] LABS: Lactate* 3.2 mmol/L (0.5-1.9)
[2025-06-05 10:22] LABS: Troponin, Point-of-Care* 0.01 ng/ml (0.01-0.04)
[2025-06-05 10:37] LABS: Hematocrit* 18.2 % (33.0-51.0); Immature Granulocytes Pct Auto 0.3 %; Mean Corpuscular HGB Conc 35 gm/dL (32-36); Mean Corpuscular Hemoglobin 40 pg (26-34); Mean Corpuscular Volume 112 fL (80-100); RDW Coefficient of Variation % 18.8 % (11.5-15.5); Red Blood Count* 1.62 m/uL (4.00-5.20); White Blood Count* 3.88 K/uL (4.50-11.00)
--- NOTE | 2025-06-05 10:42 | CRLHL7_ITS ---
For Patients: As a result of the Cures Act, medical imaging exams and procedure reports are released immediately into your electronic medical record. You may view this report before your referring provider. If you have questions, please contact your health care provider. INDICATION: Cough, dyspnea, chest discomfort COMPARISON: None. TECHNIQUE: PA and lateral 2 view chest. FINDINGS: Lung volumes are good. 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 No other focal or diffuse opacities. No pulmonary edema. No pleural effusion. No pneumothorax. No pneumomediastinum. Normal cardiomediastinal silhouette. Atherosclerosis. Bones: Normal for age. IMPRESSION: No acute appearing thoracic findings. Dictated by Haylee Le MD @ 06/05/2025 12:19:20 PM (Electronically Signed)
[2025-06-05] MEDS: ASPIRIN 81 MG TAB.CHEW 324 MG PO (10:48)
[2025-06-05 11:12] LABS: Chloride* 99 mmol/L (96-114); Potassium* 3.9 mmol/L (3.6-5.1); Sodium* 134 mmol/L (135-149)
[2025-06-05 11:15] LABS: Immature Granulocytes Abs Auto 0.00 K/uL (0.00-0.30)
[2025-06-05 11:16] LABS: Anion Gap 10 mEq/L (7-15); Blood Urea Nitrogen* 29 mg/dL (7-30); Calcium* 9.7 mg/dL (8.4-10.6); Carbon Dioxide* 25 mmol/L (20-32); Creatinine* 1.2 mg/dL (0.5-1.5); Est. Creatinine Clearance* 35.20; Estimated Glomerular Filt Rate 45 ml/min; Glucose* 144 mg/dL (60-115)
[2025-06-05 11:17] LABS: Hemoglobin* 6.4 gm/dL (12.0-16.0); Lymphocytes Absolute Auto 2.10 K/uL (0.90-2.90); Slide Review Reflex Yes
--- OUTSIDE RECORDS SUMMARY | 2025-06-05 11:21 | XMS_ITS | Clinical Summary ---
Author Organization [employer] [facility] Address [address] [place] [address] Care Team Providers Care Inspection Manager Name Role Phone None Unavailable Unavailable Iqra Cardozo DO Primary Care Provider [phone] Allergies Active Allergy Reactions Criticality Noted Date Comments Ciprofloxacin Cough,Edema,Headache 07/04/2010 Codeine Hallucinations Influenza Virus Vaccines Other - Describe In Comment Field 06/24/2016 Flu like symptoms Metoprolol Cough,Headache 12/22/2014 Morphine Nausea And Vomiting 10/21/2004 Prednisone Bleeding 02/04/2022 Medications FISH OIL CONCENTRATE CAPIndications:Rout ine general medical examination at a health care facility 1,000 mg PO BID otc 0 9 Active triamterene-hydroch lorothiazide (37.5-25 mg) (MAXZIDE-25) 37.5-25 mg tabletIndications:H TN (hypertension) Take 1 Tablet by mouth once daily. 90 Tablet 3 5 Active levothyroxine (SYNTHROID) 125 mcg tabletIndications:H ypothyroidism (acquired) Take 1 Tablet (125 mcg) by mouth once daily. 90 Tablet 3 5 Active atenoloL (TENORMIN) 100 mg tabletIndications:H TN (hypertension) Take 1 Tablet (100 mg) by mouth once daily. 90 Tablet 3 5 Active traMADoL (ULTRAM) 50 mg tabletIndications:D egenerative disc disease, thoracic Take 1 tablet daily as needed for severe pain 20 Tablet 5 Active ondansetron (ZOFRAN ODT) 4 mg disintegrating tabletIndications:N ausea Place 1 Tablet (4 mg) on the tongue every 8 hours if needed for Nausea/Vomi ting. 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 IFG (impaired fasting glucose) 12/20/2013 Overview (01/07/2016): 11/2013 Hgb A1C 5.7 Referred to IFG class - never went. 12/2014 FBS 111 (blood glucose levels from 104 up to 126 since 2004). Ref again to the IFG class. - Patient never went. 12/2015 FBS 103 Plan: Gradually continue to lose weight. Hearing loss 12/16/2013 Overview (02/17/2016): 02/06/2016 Juan Carlos Blanca, market garden worker Mild-mod sensorineural hearing loss. No aids needed at this time. Recheck in 2 years. HTN (hypertension) 10/26/2012 Overview (01/07/2016): 02/2002 TTE Normal LV size, EF 55%, mild LAE, mild MR and TR 11/2011 TTE Normal LV size and fx, EF 55-60%, borderline LA size, trace MR On Metoprolol SR 100 mg in the AM and HCTZ/TMP 25/37.5 mg in the AM Nephrolithiasis 10/26/2012 Overview (01/03/2014): 10/24/[address] [facility] [address] abd/pelvis - 2 mm left UVJ stone causing mild to moderate hydronephrosis and significant perinephric fat stranding. Pain relieved with IV fluids, Zofran, Dilaudid and Toradol. Sent home with Oxycodone, Zofran, and Flomax. 12/02/2012 Dr Robles S/P ureteroscopic stone extraction. Calcium oxalate urolithiasis Plan: Drink more water, avoid foods high in oxalate RTC in 1 year for GORDON 12/21/2013 Dr Margaret LEYVA - no stones. Plan: Drink 2 L of fluid qd, Avoid foods highest in oxalates. No f/u unless symptomatic. Elevated alanine aminotransf erase (ALT) level, mild, 2009 - has since resolved 12/03/2010 Overview (12/16/2013): Assume secondary to statin/overweight ATYPICAL CHEST PAIN, 0, exercise Myoview stress test, no ischemia, EF 74%, nl LV size and wall motion 11/02/2009 HEALTH CARE DIRECTIVE, FULL CODE, discussed, 10/19/2006, HC Directive has been scanned in. 10/19/2006 PULSATILE TINNITUS 02/02/2006 Overview (10/26/2012): 12/2005 Normal brain MRI/MRA, Dr Weston Health Maintenance 10/21/2004 Overview (01/19/2021): Metabolic/CV Risks: Lipids: See separate problem Blood sugar: See separate problem Bone Density: DEXA 2016 - normal, no further dexas needed HIV/Hep C: Cancer Screening: Cervical: Pap screening no longer indicated Breast: Mammogram after 2008, defers future mammograms Colorectal: Colonoscopy 02/09/2014, normal, no further screening indicated, Starla Haji Immunizations: TDaP 11/2012 Pneumococcal PCV13 11/2014, PPSV23 01/2018 Shingles 05/2018, 07/2018 Influenza refuses further vaccinations ACP: Full code, daughter is surrogate decision maker Consultants: 02/09/2018 POCUS exam of the carotid arteries shows mild plaque at the carotid bulbs bilaterally BREAST CA, LF MRM, 1988, NEG NODES, CHEMO FOR 6 MO Hypothyroidism (acquired) R LUNG CALCIFIED GRANULOMA STABLE SINCE HYPERLIPIDEMIA Overview (12/20/2013): Simvastatin 20 mg SEBORHEC DERMATITIS of bilateral ear canals SYNCOPE, IDIOPATHIC, 03/01 Overview (10/26/2012): Negative cardiac and neuro workup Resolved Problems Problem Noted Date Diagnosed Date Resolved Date Pulmonary fibrosis, unspecified 03/29/2025 03/29/2025 Overweight (BMI 25.0-29.9) 10/18/2008 0 01/04/2016 IMPAIRED FASTING GLUCOSE, DX 'ED 2004, CONTROLLED WITH DIET AND EXERCISE 12/02/20052012 Overview (12/12/2011): 11/2011 Hgb A1C 5.8 (prediabetes range) HOARSENESS, NEG ENT W/U, DR WESTON, 200212/10/2004 12/10/2011 Unspecified essential hypertension 10/26/2012 Overview (12/19/2011): 02/2002 TTE Normal LV size, EF 55%, mild LAE, mild MR and TR 11/2011 TTE Normal LV size and fx, EF 55-60%, borderline LA size, trace MR Encounters Date Type Department Care Team Description 05/22/2025 Telephone [facility] [address] [place] [address] Cristina Yuen PA Results 05/20/2025 1:45 PM CDT Ancillary Procedure [facility] [address] [facility] [address] [place] [address] 05/20/2025 Travel 05/16/2025 Telephone [facility] [address] [place] [address] Cristina Yuen PA Results 05/15/2025 3:05 PM CDT Ancillary Procedure [facility] [address] [place] [address] 05/15/2025 2:40 PM CDT Office Visit [facility] [address] [place] [address] Cristina Yuen PA Shortness Of Breath (x2 weeks); Headache (throbbing behind left ear x2 weeks) 05/15/2025 Travel 05/15/2025 Nurse Triage [facility] [address] [place] [address] Iqra Cardozo, DO Breathing Problem 03/29/2025 8:55 AM CDT Office Visit [facility] [address] [place] [address] Iqra Cardozo Anastasia, DO Medicare ANNUAL (subsequent) Visit (84 y.o ) 03/29/2025 Travel 03/23/2025 Refill [facility] [address] [place] [address] Cas Iqra Anastasia, DO Refill Request (Triamterene-hydroc hlorothiazide (37.5-25 Mg), Atenolol) from Last 3 Months Immunizations Immunization Administration Dates Next Due COVID-19 vaccine ([employer] 30mcg/0.3mL) P F, MDV 12/26/2020,12/05/2020 Influenza, IIV3 (Age >=3 years) 06/30/2007 Pneumococcal Poly,23-Valent (Pneumovax) 02/10/20 18,10/20/2007 Pneumococcal conj 13-Valent (Prevnar 13) 015 Td (Age >=7 Years) 10/14/2005,08/31/1995 Tdap 11/10/2024,12/10/2012 Zoster (Shingrix-RZV, recombinant) 07/30/2018, Zoster (Zostavax-ZVL, live) 10/29/2009 Family History Medical History Relation Name Comments Other Brother 5 brothers; one , 75, [place]: 1 brother , 26, drowning; 1 80, [place]; 1 - afib, throat ca, ppm: 1 B - mi, high chol, htn Alcohol/Drug Father Heart Disease Father F 69, [place], DRINKER Alcohol/Drug Mother Cancer Mother M 69 THROA T CA, ETOH, TOBACCO, HTN, DEP Hypertension Mother Other Sister 5 sisters: one , 60, complication of RA, 1 , age 85, pulm fibrosis: 1 s - RA Relation Name Status Comments Brother Father Mother Sister Social History Tobacco Use Types Packs/Day Years Used Date Smoking Tobacco: Never Smokeless Tobacco: Never Tobacco Cessation:Counseling Given: Yes Alcohol Use Standard Drinks/Week Comments No 0 (1 standard drink = 0.6 oz pur e alcohol) PHQ-2 Answer Date Recorded PHQ-2 TOTAL SCORE 0 03/29/2025 Social Connections Answer Date Recorded Do you often feel lonely or isolated from those around you? 0 05/15/2025 Alcohol Use Answer Date Recorded How often do you have a drink containing alcohol ? 0 05/15/2025 How many drinks containing a lcohol do you have on a typical day when you are drinking? 0 05/15/2025 How often do you have five or more drinks on one occasion? 0 05/15/2025 Financial Resource Strain Answer Date R ecorded Difficulty of Paying Living Expenses 3 05/15/2025 Difficulty of Paying Living Expenses Not on file 05/15/2025 Food Insecurity Answer Date Recorded Do you worry your food will run out before you are able to buy more? 1 05/15/2025 Transportation Needs Answer Date Record ed Does lack of transportation keep you from medica l appointments? 1 05/15/2025 Does lack of transportation keep you from work, meetings or getting things that you need? 1 05/15/2025 Housing Stability Answer Date Recorded What is your housing situation today? 1 05/15/2025 Utilities Answer Date Recorded Do you have trouble paying f or utilities (for example, heat, electricity, water, phone)? 1 05/15/2025 Comments No Sex and Gender Information Value Date Recorded Sex Assigned at Not on file Legal Sex Female 6:07 AM [employer] Gender Identity Not on file Sexual Orientation Not on file Obstetrics History Last Filed Vital Signs Vital Sign Reading Time Taken Comments Blood Pressure 134/68 05/15/2025 2:33 PM CDT Pulse 65 05/15/2025 2:33 PM CDT Temperature 36.9 C (98.4 F) 05/15/2025 2:33 PM CDT Respiratory Rate 20 05/15/2025 2:37 PM CDT Oxygen Saturation 99% 05/15/2025 2:33 PM CDT Inhaled Oxygen Concentration - - Weight 66.5 kg (146 lb 9.6 oz) 05/15/2025 2:33 P M CDT Height 173.4 cm (5' 8.25) 03/29/2025 8:57 AM CD T Body Mass Index 22.13 03/29/2025 8:57 AM CDT Plan of Treatment Health Maintenance Due Date Last Done Comments RSV vaccine for adults or (1 - 1-dose 75+ series) 2015 COVID-19 vaccine series ( season) 2025 06/02/2022, 12/26/2020, 12/05/2020 BMI (ht and wt on same day) for age 18+ 03/29/2026 03/29/2025, 02/12/2024, 02/09/2023, Additional history exists Depression screening for age 12+ 03/29/2026 03/29/2025, 02/15/2024, 02/15/2024, Additional history exists Medicare Wellness for age 65+ 03/30/2026 03/29/2025, 02/12/2024, 02/09/2023, Additional history exists Tetanus booster 11/10/2034 11/10/2024, 11/29, 10/14/2005, Additional history exists Pneumococcal series for age 50+ Completed 02/09/2018, 12/18/2014, 10/20/2007 Zoster (shingles) series for age 50+ Completed 07/30/2018, 05/19/2018, 10/29/2009 DEXA/DXA scan for age 65+ Completed 2023, 02/03/2017, 10/30/2009, Additional history exists Hepatitis B series for 19+ Aged Out N o longer eligible based on patient's age to complete this topic Procedures Procedure Name Priority Date/Time Associated Diagnosis Comments MR HEAD BRAIN STROKE WO MR ANGIO HEAD WO NECK WWO STAT 05/20/2025 2:14 PM CDT Throbbing headache Pulsatile tinnitus, left ear XR CHEST 2 VIEWS PA AND LATERAL Routine 05/15/2025 3:14 PM CDT SOB (shortness of breath) BASIC METABOLIC PANEL Routine 05/15/2025 3:13 PM CDT SOB (shortness of breath) PRO-BNP Routine 05/15/2025 3:13 PM CDT SOB (shortness of breath) D-DIMER,QUANTITATIV E Routine 05/15/2025 3:13 PM CDT SOB (shortness of breath) TSH Routine 03/29/2025 9:32 AM CDT Hypothyroidism (acquired) BASIC METABOLIC PANEL Routine 03/29/2025 9:32 AM CDT HTN (hypertension) HEMOGLOBIN A1C Routine 03/29/2025 9:32 AM CDT Elevated glucose LIPID PANEL W REFLEX MEASURED LDL Routine 03/29/2025 9:32 AM CDT Mixed hyperlipidemia XR DXA BONE DENSITY 2 SITES AXIAL AND 1 SITE PERIPHERAL Routine 02/15/2024 10:58 AM CDT Asymptomatic postmenopausal state from Last 3 Months or Most Recently Relevant to Health Maintenance Results * MR HEAD BRAIN WO MR ANGIO HEAD WO NECK WWO (05/20/2025 2:14 PM CDT) Anatomical Region Laterality Modality NECK, CAROTID, HEAD Magnetic Res onance 05/20/2025 2:28 PM CDT Addenda Addendum by Lisandro Nunn DO on 05/20/2025 2:29 PM CDT For Patients: As a result of the Cures Act, medical imaging exams and procedure reports are released immediately into your electronic medical record. You may view this report before your referring provider. If you have questions, please contact your health care provider. INDICATION: Headaches TECHNIQUE: TOF and Robert bolus MRA of the neck with 3D MIP reconstructions provided. All measurements are based on NASCET criteria. No comparisons. 20 cc of Clariscan was administered intravenously. FINDINGS: The visualized cervical carotids and vertebral arteries are unremarkable. Specifically, no evidence of suspicious narrowing or aneurysmal dilatation. IMPRESSION: Unremarkable MRA of the neck as far as visualized. Dictated by Ky Nunn MD @ 05/20/2025 2:29:28 PM (Electronically Signed) Addendum by Lisandro Nunn DO on 05/20/2025 2:28 PM CDT For Patients: As a result of the Cures Act, medical imaging exams and procedure reports are released immediately into your electronic medical record. You may view this report before your referring provider. If you have questions, please contact your health care provider. INDICATION: Headaches TECHNIQUE: TOF MRA of COW with 3D MIP provided. No comparisons. FINDINGS: The visualized first and second order intracranial vessels are unremarkable. Specifically, no suspicious narrowing or aneurysmal dilatation. IMPRESSION: Unremarkable MRA of the head as far as visualized. Dictated by Ky Nunn MD @ 05/20/2025 2:28:53 PM (Electronically Signed) Impressions 05/20/2025 2:28 PM CDT 1. No radiographic evidence of acute intracranial abnormalities. 2. Mild supratentorial white matter changes that are non-specific, but statistically most likely related to chronic small vessel ischemic disease. Dictated by Ky Nunn MD @ 05/20/2025 2:28:29 PM (Electronically Signed) Narrative 05/20/2025 2:28 PM CDT For Patients: As a result of the Cures Act, medical imaging exams and procedure reports are released immediately into your electronic medical record. You may view this report before your referring provider. If you have questions, please contact your health care provider. INDICATION: Headache TECHNIQUE: Noncontrast Sagittal T1,Axial FSE T2, Flair, DWI, post contrast axial and coronal T1W images submitted. No comparisons. FINDINGS: The ventricles, sulci and gyri are of normal size, shape and contour for age. Midline structures are centrally located. No convincing evidence of suspicious intra- or extra-axial fluid collections. Mild patchy regions of increased T2 signal within the periventricular and subcortical white matter of both cerebral hemispheres. No regions of restricted diffusion or suspicious regions of abnormal parenchymal enhancement. Procedure Note Lisandro Nunn, DO - 05/20/2025 For Patients: As a result of the Cures Act, medical imagingexams and procedure reports are released immediately into your electronicmedical record. You may view this report before your referring provider.If you have questions, please contact your health care provider. INDICATION: Headache TECHNIQUE: Noncontrast Sagittal T1,Axial FSE T2, Flair, DWI, post contrast axial andcoronal T1W images submitted. No comparisons. FINDINGS: The ventricles, sulci and gyri are of normal size, shape and contour forage. Midline structures are centrally located. No convincing evidence ofsuspicious intra- or extra-axial fluid collections. Mild patchy regions ofincreased T2 signal within the periventricular and subcortical whitematter of both cerebral hemispheres. No regions of restricted diffusion orsuspicious regions of abnormal parenchymal enhancement. IMPRESSION: 1. No radiographic evidence of acute intracranial abnormalities. 2. Mild supratentorial white matter changes that are non-specific, butstatistically most likely related to chronic small vessel ischemicdisease. Dictated by Ky Nunn MD @ 05/20/2025 2:28:29 PM (Electronically Signed) Cristina Yuen PA MR Edited Result - Final * XR CHEST 2 VIEWS PA AND LATERAL (05/15/2025 3:14 PM CDT) Anatomical Region Laterality Modality CHEST, THORAX, Lung, HEART Compu clifford Radiography 05/15/2025 3:19 PM CDT Impressions 05/15/2025 3:19 PM CDT Chronic COPD. No acute infiltrate or CHF. Dictated by Jonathan Doyle MD @ 05/15/2025 3:19:17 PM (Electronically Signed) Narrative 05/15/2025 3:19 PM CDT For Patients: As a result of the Cures Act, medical imaging exams and procedure reports are released immediately into your electronic medical record. You may view this report before your referring provider. If you have questions, please contact your health care provider. INDICATION: Shortness of breath TECHNIQUE: Chest 2 views COMPARISON: None FINDINGS: Lung volumes increased. Calcified intrathoracic lymph nodes and calcified pulmonary nodules. No infiltrate or edema. No effusion or pneumothorax. No fracture. Procedure Note Jonathan Doyle MD - 05/15/2025 For Patients: As a result of the Cures Act, medical imagingexams and procedure reports are released immediately into your electronicmedical record. You may view this report before your referring provider.If you have questions, please contact your health care provider. INDICATION: Shortness of breath TECHNIQUE: Chest 2 views COMPARISON: None FINDINGS: Lung volumes increased. Calcified intrathoracic lymph nodes and calcifiedpulmonary nodules. No infiltrate or edema. No effusion or pneumothorax. Nofracture. IMPRESSION: Chronic COPD. No acute infiltrate or CHF. Dictated by Jonathan Doyle MD @ 05/15/2025 3:19:17 PM (Electronically Signed) us Cristina [facility]UNIG[facility] Final Result * D-DIMER,QUANTITATIVE (05/15/2025 3:13 PM CDT) Pathologist [facility] [place] D-DIMER, QUANTITATIVE 0.30 <0.50 mcg/mL FEU 05/16/2025 10:19 AM CDT [facility] Comment: Elevated D-dimer levels are associated with DIC, malignancies, inflammation, sepsis, surgery, trauma, and . A D-dimer result less than 0.5 mcg/mL FEU, in conjunction with a non-high clinical pre-test probability assessment model, excludes deep vein thrombosis and pulmonary embolism. However, since D-dimer values increase with age, the [employer] recommends an age-adjusted cut-off value in patients older than 50. The calculation for an age adjusted cut-off value is age (years) x 0.01 mcg/mL FEU. For example, the cut-off for a 70-year-old patient would be 70 x 0.01 mcg/mL FEU. For additional information, please refer to http://education.[employer]/faq/YXN699 (This link is being provided for informational/educational purposes only.) Blood BLOOD SPECIMEN / Unknown [facility] / Unknown 05/15/2025 3:13 PM CDT 05/15/2025 3:13 PM CDT us Cristina [facility]UNG[facility] Final Result SupportPay [facility] [address] [place] [address], * PRO-BNP (05/15/2025 3:13 PM CDT) Pathologist [facility] [place] NT PROBNP 389 <450 pg/mL 05/16/2025 11:51 AM CDT [facility] Blood BLOOD SPECIMEN / Unknown [facility] / Unknown 05/15/2025 3:13 PM CDT 05/15/2025 3:13 PM CDT us Cristina ZUNIGA SEND OUTS Final Result [facility] [address] [place] [address], * (ABNORMAL) BASIC METABOLIC PANEL (05/15/2025 3:13 PM CDT) Only the most recent of2 resultswithin the time period is included. SODIUM 139 135 - 146 mmol/L 05/16/2025 4:54 AM CDT [facility] POTASSIUM 3.5 3.5 - 5.3 mmol/L 05/16/2025 4:54 AM CDT [facility] CARBON DIOXIDE 30 20 - 32 mmol/L 05/16/2025 4:54 AM CDT [facility] GLUCOSE 148(H) 65 - 99 mg/dL 05/16/2025 4:54 AM CDT [facility] Comment: Fasting reference interval For someone without known diabetes, a glucose value >125 mg/dL indicates that they may have diabetes and this should be confirmed with a follow-up test. CALCIUM 9.4 8.6 - 10.4 mg/dL 05/16/2025 4:54 AM CDT [facility] CREATININE 1.29(H) 0.60 - 0.95 mg/dL 05/16/2025 4:54 AM CDT [facility] BUN/CREATININE RATIO 24(H) 6 - 22 (calc) 05/16/2025 4:54 AM CDT [facility] EGFR 41(L) > OR = 60 mL/min/1. 73m2 05/16/2025 4:54 AM CDT [facility] UREA NITROGEN (BUN) 31(H) 7 - 25 mg/dL 05/16/2025 4:54 AM CDT [facility] ELECTROLYTE BALANCE 9 7 - 17 mmol/L (calc) 05/16/2025 4:54 AM CDT [facility] CHLORIDE 100 98 - 110 mmol/L 05/16/2025 4:54 AM CDT [facility] Blood BLOOD SPECIMEN / Unknown [facility] / Unknown 05/15/2025 3:13 PM CDT 05/15/2025 3:13 PM CDT Cristina ZUNIGA CHEMISTRY Final Result SupportPay [facility] [address] [place] [address], * (ABNORMAL) HEMOGLOBIN A1C (03/29/2025 9:32 AM CDT) HEMOGLOBIN A1C 5.7(H) <5.7 % [facility] Comment: For someone without known diabetes, a hemoglobin A1c value between 5.7% and 6.4% is consistent with prediabetes and should be confirmed with a follow-up test. For someone with known diabetes, a value <7% indicates that their diabetes is well controlled. A1c targets should be individualized based on duration of diabetes, age, comorbid conditions, and other considerations. This assay result is consistent with an increased risk of diabetes. Currently, no consensus exists regarding use of hemoglobin A1c for diagnosis of diabetes for children. Blood BLOOD SPECIMEN / Unknown 03/29/2025 9:32 AM CDT 03/29/2025 9:32 AM CDT Iqra Bazanyeison CHEMISTRY Final Result Performing Organization Address City/[facility]/ZIP Co de Phone Number SupportPay [facility] [address] [place] [address], [facility] [address] [place] [address] * (ABNORMAL) LIPID PANEL W REFLEX MEASURED LDL (03/29/2025 9:32 AM CDT) CHOLESTEROL, TOTAL 186 <200 mg/dL [facility] HDL CHOLESTEROL 58 > OR = 50 mg/dL [facility] TRIGLYCERIDES 178(H) <150 mg/dL [facility] LDL-CHOLESTEROL 101(H) mg/dL (calc) [facility] Comment: Reference range: <100 Desirable range <100 mg/dL for primary prevention; <70 mg/dL for patients with CHD or diabetic patients with > or = 2 CHD risk factors. LDL-C is now calculated using the Nina calculation, which is a validated novel method providing better accuracy than the Friedewald equation in the estimation of LDL-C. Gato HAYDEN et al. JEANNE. 2013;310(19): 3366-6130 (http://education.[employer]/faq/MPG567) CHOL/HDLC RATIO 3.2 <5.0 (calc) [facility] NON HDL CHOLESTEROL 128 <130 mg/dL (calc) [facility] Comment: For patients with diabetes plus 1 major ASCVD risk factor, treating to a non-HDL-C goal of <100 mg/dL (LDL-C of <70 mg/dL) is considered a therapeutic option. Blood BLOOD SPECIMEN / Unknown 03/29/2025 9:32 AM CDT 03/29/2025 9:32 AM CDT Iqra Offbeat Guidesqra DO CHEMISTRY Final Result SupportPay [facility] [address] [place] [address], [place] [phone] [facility] [address] [place] [address] * TSH (03/29/2025 9:32 AM CDT) TSH 1.22 0.40 - 4.50 mIU/L [facility] Blood BLOOD SPECIMEN / Unknown 03/29/2025 9:32 AM CDT 03/29/2025 9:32 AM CDT Iqra Offbeat Guidesqra DO CHEMISTRY Final Result [employer] [facility] [address] [place] [address], [place] [phone] [facility] [address] [place] [address] * (ABNORMAL) XR DXA BONE DENSITY 2 SITES AXIAL AND 1 SITE PERIPHERAL (02/15/2024 10:58 AM CDT) Anatomical Region Laterality Modality LUMBAR SPINE Other Impressions 02/16/2024 1:38 PM CDT Osteopenia. RECOMMENDATIONS: The National Osteoporosis Foundation recommends pharmacologic treatment for patients with T-scores of -2.5 or less, patients with prior history of fragility fractures, or patients with 10-year probability of greater than 3% at hips or greater than 20% of suffering major osteoporotic fractures. Recommend continued optimization of calcium and vitamin D intake through dietary means and/or supplementation and regular exercise. Repeat scan recommended in 2-3 years. Latrice Raines PA-C [facility] 02/16/2024 Narrative 02/16/2024 1:38 PM CDT For Patients: Results are automatically released to your [facility] account once available, in compliance with federal regulations. This means that you may see your results before your provider has had a chance to review them. Please allow 2-3 business days for your provider to comment on the results. XR DXA Bone Mineral Density (BMD) EXAM LOCATION: [facility] [address] [facility] [address] PATIENT NAME: Cecilia Max DATE OF : 1940 EXAM DATE: 02/15/2024 REQUESTING PROVIDER: Iqra Cardozo DO GENDER AT : female HEIGHT: 5' 7.01 (02/12/2024) WEIGHT: 146 lb 14.4 oz (02/12/2024) MENOPAUSAL STATUS: Postmenopausal RACE/ETHNICITY: White RISK FACTORS: Cancer Treatment, Renal Failure, and White Race CURRENT MEDICATION FOR BONE LOSS: NONE INDICATION: Post-Menopause COMPARISON DATE(S): None DXA scans are compared to prior studies for a patient only when the two (or more) studies were performed on the same scanner. It is not possible to compare data generated on one scanner to data from another because there are not standards in DXA equipment. This applies even if the two scanners are made by the same export clerk. PROCEDURE: Dual-energy x-ray absorptiometry performed with routine technique. Reporting is completed in the form of a T-score. The T-score represents the standard deviation from peak bone mass based on young healthy adult. A Z-score is used for diagnosis in premenopausal women, and for men under the age of 50. FINDINGS: RESULT LUMBAR SPINE L1-L2 (L3-L4) BMD: 1.378 g/cm2 T-Score: + 1.7 Z-Score: + 3.5 Change from prior: None RESULTS FEMUR Left femoral neck BMD: 0.921 g/cm2 T-Score: - 0.8 Z-Score: + 1.4 Change from prior: None Right femoral neck BMD: 0.963 g/cm2 T-Score: - 0.5 Z-Score: + 1.7 Change from prior: None Left hip BMD: 0.994g/cm2 T-Score: - 0.1 Z-Score: + 2.0 Change from prior: None Right hip BMD: 1.023 g/cm2 T-Score: + 0.1 Z-Score: + 2.3 Change from prior: None RESULT FOREARM Left Forearm distal radius BMD: 0.747 g/cm2 T-Score: - 1.5 Z-Score: + 1.5 Change from prior: None WHO criteria: Normal: T-score at or above -1 SD Osteopenia: T-score between -1.1 and -2.4 SD Osteoporosis: T-score at or below -2.5 SD Iqra Cardozo DO DEXA Final Result from Last 3 Months or Most Recently Relevant to Health Maintenance Insurance MEDICARE [place] ONLY MEDICARE PART B HB ONLY [facility] Advance Directives Documents on File Type Date Recorded Patient Sports Complex Attendant Expl anation Healthcare Directive 06/19/2011 HCD 17/07 * No Code Status (Latest Code Status on File) Date Activated Date Inactivated Comments 06/26/2004 12:35 PM 06/26/2004 12:35 PM Care Teams Inspection Manager Relationship Specialty Start Date End Date Iqra Cardozo DO [address] [place] [address] PCP - General Family Practice 01/13/22 None . 12/10/11
[2025-06-05 11:22] LABS: Erythrocyte SedimentationRate* 86 mm/hr (2-20)
[2025-06-05 11:26] LABS: NT Pro B Type NatriureticPept* 323 pg/mL (See Note); Slide Review Acceptable Review (Acceptable)
[2025-06-05 11:35] LABS: D Dimer Quantitative* 0.83 ug/ml (0.00-0.50)
[2025-06-05] MEDS: METHYLPREDNISOLONE SOD SUCC 62.5 MG/ML (125) 125 MG IVP (11:49)
[2025-06-05 12:08] LABS: Fecal Occult Blood* Negative (Negative)
[2025-06-05] MEDS: 0.9 % SODIUM CHLORIDE 500 ML 250 ML IV (13:11)
--- NOTE | 2025-06-05 14:17 | PC.NURSE ---
Report given to UMANG Erazo on M/S. Patient transported to room 258. All belongings sent with patient.
--- NOTE | 2025-06-05 16:25 | P.IMHP_ITS ---
Assessment and Plan Assessment and plan (1) Anemia: Problem comment: - hemoglobin 6.4, WBC 3.88, RBC 1.62, MCV 112, platelets 50. No abdominal imaging but no report of active bleed currently either - symptomatic with pulsatile tinnitus, dyspnea on exertion-specifically stairs, intermittent nausea, headaches, occasional flashing lights in her vision - FOBT negative, no report or evidence of active, acute bleed - in reviewing EMR, anemia with thrombocytopenia of unknown origin noted October 2021 - 2 units PRBC ordered, recheck hemoglobin ordered - SCDs for VTE PPX - outpatient follow-up with Heme Onc Status: Acute (2) Thrombocytopenia: Problem comment: - platelets 50, baseline 122-136 over past 2 years - monitor Status: Acute (3) Tinnitus: Problem comment: - described as pulsatile. MRI 05/25 unremarkable Status: Acute (4) Hypertension: Problem comment: - continue atenolol, hold triamterene/HCTZ, monitoring blood pressures. Hold if soft pressures noted Status: Acute (5) Hypothyroidism: Problem comment: - continue levothyroxine - TSH ordered Status: Acute (6) Stage 3a chronic kidney disease (CKD): Problem comment: - creatinine 1.2 with GFR 45, baseline 1.0-1.29 with GFR 41 -51 - monitor Status: Acute Total Time Spent Total Time Spent: Today I spent 75 minutes seeing the patient, reviewing Expanse and EPIC notes/diagnostics, discussing the care plan with our care time that includes social work, PT/OT, pharmacy, RT, half-way and documenting my impressions and plan in the medical record. Hospitalist- H&P: HPI History of Present Illness Date Seen: 06/05/25 Chief complaint: Weak, trouble breathing, jaw hurts, dizzy, vision Narrative: Cecilia Max is a 84 year old female past medical history significant for CKD stage IIIA, hypothyroidism, hyperlipidemia, hypertension, prediabetes, breast cancer 1988, right lung calcified granuloma stable since 1991 is admitted to the medical floor from the ED for significant anemia, thrombocytopenia. Patient is seen with [id number] at bedside. Reports at least 7 weeks of symptoms with pulsatile tinnitus, intermittent headaches, dyspnea on exertion- with stairs, occasional flashing of lights in her vision, intermittent nausea. Was seen in the clinic mid May and had an MRI of the brain/neck which was unremarkable, labs were obtained at that time but not a CBC or hemoglobin. She was going to see the health analytics consultant today but did not feel well enough and instead came to the ED. Denies current headache or dizziness. Denies chest pain. No recent vomiting or diarrhea. No abdominal pain. No dark or bloody stools. No hematuria. No hematemesis or hemoptysis. No recent surgeries. Is not on a blood thinner. Does not taken NSAIDs on a regular basis though did just start to take a small baby aspirin recently because she has not felt well for the past several weeks. No previous history of bleeds or significant anemia. Does not drink alcohol. Nonsmoker. PCP is Dr. Iqra Cardozo. Review of Systems Narrative: REVIEW OF SYSTEMS: Complete review of systems performed and negative unless otherwise stated in HPI or below. Medical Decision Making Medical Decision Making Has patient completed a Health Care Directive: Yes During This Stay, Who Would You Like To Make Decisions For You In The Event You Are Unable To Make Them For Yourself?: Consuelo Pimentel [phone] [facility] Medical History (Updated 06/05/25 @ 17:51 by Kaci Devlin PA-C) Thrombocytopenia ?D69.6 - Thrombocytopenia, unspecified (ICD-10) Tinnitus ?H93.19 - Tinnitus, unspecified ear (ICD-10) Stage 3a chronic kidney disease (CKD) ?N18.31 - Chronic kidney disease, stage 3a (ICD-10) Nephrolithiasis ?N20.0 - Calculus of kidney (ICD-10) 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 - Pulmonary fibrosis, unspecified (ICD-10) Degenerative disc disease Prediabetes ?R73.03 - Prediabetes (ICD-10) Hyperlipidemia ?E78.5 - Hyperlipidemia, unspecified (ICD-10) Hypothyroidism ?E03.9 - Hypothyroidism, unspecified (ICD-10) Hypertension ?I10 - Essential (primary) hypertension (ICD-10) Social History What is your current living situation?: I presently have a place to live Problems where you live: no known problems In the past 12 months, utilities in danger of being shut off: no In past 12 months, lack of transportation kept you from medical appts, meetings, work, or getting things needed for daily living: no In the past 12 mos, have been you worried that your food would run out before you had money to buy more?: never true In the past 12 mos, the food you bought just didn't last and you didn't have money to buy more?: never true Highest level of school completed/degree received: high school graduate Smoking Status: Never smoker Do you use any of these nicotine containing products: None Second hand tobacco smoke exposure: No How often do you have a drink containing alcohol: never How often do you have six or more drinks on one occasion: Never AUDIT-C Alcohol total score: 0 Non-prescribed substance use: denies use Caffeine: No How often does anyone, including family, friends and others, physically hurt you : never How often does anyone, including family, friends and others, insult or talk down to you: never How often does anyone, including family, friends and others, threaten you with harm: never How often does anyone, including family, friends and others, scream or curse at you: never service: No Meds Home Medications and Allergies Home Medications ?Medication ?Instructions ?Recorded ?Confirmed ?Type atenolol 100 mg tablet 100 mg PO DAILY 06/05/2502/22 History levothyroxine 125 mcg tablet 125 mcg PO DAILY 06/05/25 06/05/25 History ondansetron 4 mg disintegrating 4 mg PO Q8H PRN nausea /vomiting 06/05/25 06/05/25 History tablet tramadol 50 mg tablet 50 mg PO DAILY PRN severe pa in 06/05/25 06/05/25 History triamterene 37.5 1 tab PO DAILY 06/05/2502/22 History mg-hydrochlorothiazide 25 mg tablet Allergies Allergy/AdvReac Type Severity Reaction Status Date / Time Opioids - Morphine Analogues AdvReac Intermediate Verified 06/05/25 10:10 codeine AdvReac Verified 06/05/25 10:10 Exam Narrative: Exam Narrative: PHYSICAL EXAM General: Very pleasant, conversant, NAD HEENT: Normocephalic, atraumatic, sclera white, EOMI, oral mucosa moist Cardiovascular: RRR, S1S2. No pitting edema Pulmonary: CTA bilaterally without rhonchi, rales, expiratory wheezes. No dyspnea on room air Abdominal: Soft, nondistended, NTTP Neurological: Alert, answering questions appropriately, cranial nerves intact, no focal findings Extremities: No gross joint deformity or swelling. AROMI. Neurovascularly intact Skin: Pale, Warm, dry. Const: Vital Signs, click to edit/add: Vital Signs - 24 hr 06/05/25 10:03 06/05/25 10:07 06/05/25 10:15 Temperature 97.4 F L Pulse Rate 60 64 Pulse Rate [Left P ulse Oximeter] Pulse Rate [Pulse Oximeter] 73 Respiratory Rate 20 6 L 14 Blood Pressure 190/80 H Blood Pressure [Ri ght Upper Arm] 201/95 H Pulse Oximetry 100 [facility] 06/05/25 10:30 06/05/25 10:32 06/05/25 10:33 Temperature Pulse Rate 64 62 63 Pulse Rate [Left P ulse Oximeter] Pulse Rate [Pulse Oximeter] Respiratory Rate 10 L 20 31 H Blood Pressure 171/65 H Blood Pressure [Ri ght Upper Arm] Pulse Oximetry 100 100 [facility] 06/05/25 10:45 06/05/25 11:00 06/05/25 11:02 Temperature Pulse Rate 59 L 56 L 54 L Pulse Rate [Left P ulse Oximeter] Pulse Rate [Pulse Oximeter] Respiratory Rate 7 L 18 16 Blood Pressure 156/58 H Blood Pressure [Ri ght Upper Arm] Pulse Oximetry 99 100 [facility] 06/05/25 11:03 06/05/25 11:15 06/05/25 11:30 Temperature Pulse Rate 55 L 60 64 Pulse Rate [Left P ulse Oximeter] Pulse Rate [Pulse Oximeter] Respiratory Rate 14 11 L 20 Blood Pressure Blood Pressure [Ri ght Upper Arm] Pulse Oximetry 99 99 [facility] 06/05/25 11:32 06/05/25 11:45 06/05/25 12:00 Temperature Pulse Rate 66 64 Pulse Rate [Left P ulse Oximeter] Pulse Rate [Pulse Oximeter] Respiratory Rate 19 16 25 H Blood Pressure 170/71 H Blood Pressure [Ri ght Upper Arm] Pulse Oximetry 100 99 Oxygen Delivery [facility] 06/05/25 12:02 06/05/25 12:03 06/05/25 12:15 Temperature Pulse Rate Pulse Rate [Left P ulse Oximeter] Pulse Rate [Pulse Oximeter] Respiratory Rate 8 L 15 13 Blood Pressure 156/74 H Blood Pressure [Ri ght Upper Arm] Pulse Oximetry Oxygen Delivery Me thod 06/05/25 12:30 06/05/25 12:32 06/05/25 12:45 Temperature Pulse Rate Pulse Rate [Left P ulse Oximeter] Pulse Rate [Pulse Oximeter] Respiratory Rate 13 16 14 Blood Pressure 140/88 H Blood Pressure [Ri ght Upper Arm] Pulse Oximetry Oxygen Delivery Me [facility]od 06/05/25 13:00 06/05/25 13:02 06/05/25 13:03 Temperature 96.6 F L Pulse Rate 65 61 61 Pulse Rate [Left P ulse Oximeter] Pulse Rate [Pulse Oximeter] Respiratory Rate 13 14 16 Blood Pressure 157/61 H Blood Pressure [Ri ght Upper Arm] Pulse Oximetry 98 98 97 Oxygen Delivery [facility] 06/05/25 13:05 06/05/25 13:15 06/05/25 13:22 Temperature 96.6 F L 97.2 F L Pulse Rate 62 63 62 Pulse Rate [Left P ulse Oximeter] Pulse Rate [Pulse Oximeter] Respiratory Rate 16 14 16 Blood Pressure 157/61 H 147/61 H Blood Pressure [Ri ght Upper Arm] Pulse Oximetry 99 98 97 Oxygen Delivery Me od Room Air Room Air 06/05/25 13:24 06/05/25 13:30 06/05/25 13:33 Temperature Pulse Rate 62 64 62 Pulse Rate [Left P ulse Oximeter] Pulse Rate [Pulse Oximeter] Respiratory Rate 16 28 H 6 L Blood Pressure 147/61 H 152/55 H Blood Pressure [Ri ght Upper Arm] Pulse Oximetry 96 98 99 Oxygen Delivery [facility] 06/05/25 13:45 06/05/25 13:52 06/05/25 14:00 Temperature 97.4 F L Pulse Rate 66 65 63 Pulse Rate [Left P ulse Oximeter] Pulse Rate [Pulse Oximeter] Respiratory Rate 24 16 19 Blood Pressure 148/73 H Blood Pressure [Ri ght Upper Arm] Pulse Oximetry 99 99 99 Oxygen Delivery Me thod Room Air 06/05/25 14:02 06/05/25 14:15 06/05/25 14:22 Temperature 97.1 F L Pulse Rate 63 63 71 Pulse Rate [Left P ulse Oximeter] Pulse Rate [Pulse Oximeter] Respiratory Rate 17 19 20 Blood Pressure 148/73 H 167/64 H Blood Pressure [Ri ght Upper Arm] Pulse Oximetry 99 99 99 Oxygen Delivery Me thod Room Air 06/05/25 14:40 06/05/25 14:52 06/05/25 15:00 Temperature 96.1 F L Pulse Rate 65 Pulse Rate [Left P ulse Oximeter] 70 Pulse Rate [Pulse Oximeter] Respiratory Rate 20 18 Blood Pressure 136/57 L Blood Pressure [Ri ght Upper Arm] Pulse Oximetry 99 99 Oxygen Delivery Me thod Room Air Room Air 06/05/25 15:22 06/05/25 15:43 06/05/25 16:09 Temperature 97.1 F L 96.9 F L 97.0 F L Pulse Rate 67 70 66 Pulse Rate [Left P ulse Oximeter] Pulse Rate [Pulse Oximeter] Respiratory Rate 18 20 18 Blood Pressure 149/64 H 141/62 H 132/58 L Blood Pressure [Ri ght Upper Arm] Pulse Oximetry 98 99 99 Oxygen Delivery Me thod Room Air Room Air Room Air Hospitalist - H&P: Result Labs Labs: Short CBC 06/05/25 Range/Units 10:05 WBC 3.88 L (4.50-11.00) K/uL Hgb 6.4 L* (12.0-16.0) gm/dL Hct 18.2 L (33.0-51.0) % Plt Count 50 L (140-440) K/uL BMP 06/05/25 10:05 Sodium 134 L Potassium 3.9 Chloride 99 Carbon Dioxide 25 BUN 29 Creatinine 1.2 Glucose 144 H Calcium 9.7 Cardiac Enzymes 06/05/25 Range/Units 12:35 Troponin I < 0.01 (0.01-0.04) ng/mL ECG Attestation: I personally reviewed and interpreted this ECG as follows: Interpretation: Normal sinus rhythm, maybe 1st degree AV block, QTC 434, ventricular rate 62 Imaging Chest x-ray: Attestation: I have reviewed the pertinent imaging results. Radiologist's impression: Lung volumes are good. 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 No other focal or diffuse opacities. No pulmonary edema. No pleural effusion. No pneumothorax. No pneumomediastinum. Normal cardiomediastinal silhouette. Atherosclerosis. Bones: Normal for age. IMPRESSION: No acute appearing thoracic findings. Outside MRI brain and neck 05/15/2025: Attestation: I have reviewed the pertinent imaging results. Radiologist's impression: TOF and Robert bolus MRA of the neck with 3D MIP reconstructions provided. All measurements are based on NASCET criteria. No comparisons. 20 cc of Clariscan was administered intravenously. ? FINDINGS: The visualized cervical carotids and vertebral arteries are unremarkable. Specifically, no evidence of suspicious narrowing or aneurysmal dilatation. ? IMPRESSION: Unremarkable MRA of the neck as far as visualized. ? ? ? Dictated by Ky Nunn MD @ 05/20/2025 2:29:28 PM ? (Electronically Signed) Signed by Lisandro Nunn DO on 05/20/2025 ?2:29 PM For Patients: As a result of the Century Cures Act, medical imaging exams and procedure reports are released immediately into your electronic medical record. You may view this report before your referring provider. If you have questions, please contact your health care provider. ? ? INDICATION: Headaches ? TECHNIQUE: TOF MRA of COW with 3D MIP provided. No comparisons. ? FINDINGS: The visualized first and second order intracranial vessels are unremarkable. Specifically, no suspicious narrowing or aneurysmal dilatation. ? IMPRESSION: Unremarkable MRA of the head as far as visualized.
[2025-06-05 18:39] LABS: Hemoglobin* 8.4 gm/dL (12.0-16.0)
--- NOTE | 2025-06-05 19:03 | PC.NURSE ---
End of shift Note 258? ? Patient has been very cooperative and pleasant throughout shift. Admitted for hypoxia/weakness. VSS. Afebrile. Blood transfusion tolerated well. SBA + gait belt due to dizziness. Saline locked. A&Ox4. Uses call light appropriately. Call light within reach.?
[2025-06-05] MEDS: SODIUM CHLORIDE 0.9 % (FLUSH) 10 ML SYRINGE 5 ML IVF (22:21)
[2025-06-06] VITALS (29 sets, daily range): BP systolic 113–155; BP diastolic 50–83; PULSE 50–75; RESP 16–18; TEMP 36.1–36.9; O2SAT 97–100
[2025-06-06] MEDS: MELATONIN 3 MG TABLET PO ×2 (02:49→19:47)
--- NOTE | 2025-06-06 04:55 | PC.NURSE ---
Shift note: Patient is doing as she is gradually gaining strength. However, patient continue to have tinnitus. Hemoglobin level at 1999 was 8.4 after the blood transfusion from 6.4. Vitally stable. Ambulated with SBA. Patient had difficulty sleeping. Melatonin 3mg was given at 0230 and appeared effective. Patient was alert and oriented.
[2025-06-06 05:45] LABS: Hematocrit* 21.2 % (33.0-51.0); Mean Corpuscular HGB Conc 35 gm/dL (32-36); Mean Corpuscular Hemoglobin 36 pg (26-34); Mean Corpuscular Volume 102 fL (80-100); Red Blood Count* 2.08 m/uL (4.00-5.20); White Blood Count* 2.44 K/uL (4.50-11.00)
[2025-06-06 05:54] LABS: Hemoglobin* 7.4 gm/dL (12.0-16.0)
[2025-06-06 05:55] LABS: Slide Review Reflex No
[2025-06-06 06:03] LABS: Chloride* 103 mmol/L (96-114); Potassium* 3.8 mmol/L (3.6-5.1); Sodium* 134 mmol/L (135-149)
[2025-06-06 06:06] LABS: Anion Gap 8 mEq/L (7-15); Blood Urea Nitrogen* 38 mg/dL (7-30); Calcium* 8.9 mg/dL (8.4-10.6); Carbon Dioxide* 23 mmol/L (20-32); Creatinine* 1.2 mg/dL (0.5-1.5); Est. Creatinine Clearance* 35.20; Estimated Glomerular Filt Rate 45 ml/min; Glucose* 154 mg/dL (60-115)
[2025-06-06] MEDS: LEVOTHYROXINE 125 MCG TABLET PO (06:21)
[2025-06-06] MEDS: SODIUM CHLORIDE 0.9 % (FLUSH) 10 ML SYRINGE 5 ML IVF ×2 (09:07→23:02)
[2025-06-06 09:37] LABS: Bilirubin Total* 1.7 mg/dL (0.1-1.5)
[2025-06-06] MEDS: 0.9 % SODIUM CHLORIDE 500 ML 250 ML IV ×2 (09:52→13:22)
[2025-06-06 09:54] LABS: Immature Granulocytes Abs Auto 0.01 K/uL (0.00-0.30); Immature Granulocytes Pct Auto 0.4 %; Immature Reticulocyte Fraction 21.3 % (3.0-15.9); Lymphocytes Absolute Auto 0.92 K/uL (0.90-2.90); RDW Coefficient of Variation % 22.0 % (11.5-15.5); Reticulocyte Hemoglobin Equivi 42.5 pg (29.0-35.0); Reticulocytes Absolute 0.04 # (0.03-0.08)
--- NOTE | 2025-06-06 10:45 | P.IMPN_ITS ---
Assessment and Plan Assessment and plan (1) Pancytopenia: Problem comment: Check for vitamin deficiency. More likely causes include leukemia with atypical lymphocytes or other bone marrow failure. May need fairly urgent hematology evaluation. Status: Acute (2) Hypothyroidism: Problem comment: - continue levothyroxine - TSH 2.1 Status: Acute (3) Tinnitus: Problem comment: Longstanding problem having been evaluated as long ago as 2005. Likely worse due to severe anemia Status: Acute Plan Additional blood transfusion today. Ongoing monitoring of CBC and symptoms. Arrange for urgent hematology evaluation. Total Time Spent Total Time Spent: Total time spent today is 60 minutes in reviewing outside records, coordination of care with heme/onc, lab and discussion with patient about ongoing evaluation and management. Subjective Date Seen: 06/06/25 Interval history: Cecilia Max is a 84 year old female past medical history significant for CKD stage IIIA, hypothyroidism, hyperlipidemia, hypertension, prediabetes, breast cancer 1989 is admitted to the hospital with a 7+ weeks of exertional dyspnea, pulsatile tinnitus, weakness and fatigue. On admission she was found to have pancytopenia with a hemoglobin of 6.4[place] [address] [place], absolute neutrophil count of 400 and lymphocyte count of 2100. Her MCV was 112. Peripheral smear preliminary report:RBCs Moderate macrocytes, microcytes, polychromasia, ovalocytes, fragments, spherocytes.WBC's Many reactive/abnormal lymphocytes. No history of blood disorder, recent chemotherapy, or bleeding. She received transfusion of 2 units of red blood cells. This morning her hemoglobin is 7.4 [place] [address]. She reports feeling significantly better today. Still has a mild amount of pulsatile tinnitus and mild dyspnea with activity but no dyspnea at rest. She has had no fever or symptoms of infectious illness recently. In reviewing past medical history I see that she has had a normal CBC in October of 2024. Exam Narrative: Exam Narrative: She is alert and appears in no distress. She is oriented to her circumstances. Breathing is unlabored. Lungs clear to auscultation. Cardiovascular: S1, S2, 1/6 systolic murmur. Regular rate and rhythm. Abdomen soft without tenderness or mass. No extremity edema. No petechiae Const: Vital Signs, click to edit/add: Vital Signs - 24 hr 06/05/25 11:00 06/05/25 11:02 06/05/25 11:03 Temperature Pulse Rate 56 L 54 L 55 L Pulse Rate [Left P ulse Oximeter] Pulse Rate [orthos tatic lying Right Pulse Oximeter] Pulse Rate [orthos tatic sitting Righ t Pulse Oximeter] Pulse Rate [orthos tatic standing Rig ht Pulse Oximeter] Respiratory Rate 18 16 14 Blood Pressure 156/58 H Blood Pressure [Ri ght Arm] Blood Pressure [or thostatic lying Ri ght Arm] Blood Pressure [or thostatic sitting Right Arm] Blood Pressure [or thostatic standing Right Arm] Pulse Oximetry 100 99 99 Oxygen Delivery Me thod 06/05/25 11:15 06/05/25 11:30 06/05/25 11:32 Temperature Pulse Rate 60 64 66 Pulse Rate [Left P ulse Oximeter] Pulse Rate [orthos tatic lying Right Pulse Oximeter] Pulse Rate [orthos tatic sitting Righ t Pulse Oximeter] Pulse Rate [orthos tatic standing Rig ht Pulse Oximeter] Respiratory Rate 11 L 20 19 Blood Pressure 170/71 H Blood Pressure [Ri ght Arm] Blood Pressure [or thostatic lying Ri ght Arm] Blood Pressure [or thostatic sitting Right Arm] Blood Pressure [or thostatic standing Right Arm] Pulse Oximetry 99 100 100 Oxygen Delivery Me thod 06/05/25 11:45 06/05/25 12:00 06/05/25 12:02 Temperature Pulse Rate 64 Pulse Rate [Left P ulse Oximeter] Pulse Rate [orthos tatic lying Right Pulse Oximeter] Pulse Rate [orthos tatic sitting Righ t Pulse Oximeter] Pulse Rate [orthos tatic standing Rig ht Pulse Oximeter] Respiratory Rate 16 25 H 8 L Blood Pressure 156/74 H Blood Pressure [Ri ght Arm] Blood Pressure [or thostatic lying Ri ght Arm] Blood Pressure [or thostatic sitting Right Arm] Blood Pressure [or thostatic standing Right Arm] Pulse Oximetry 99 Oxygen Delivery Me thod 06/05/25 12:03 06/05/25 12:15 06/05/25 12:30 Temperature Pulse Rate Pulse Rate [Left P ulse Oximeter] Pulse Rate [orthos tatic lying Right Pulse Oximeter] Pulse Rate [orthos tatic sitting Righ t Pulse Oximeter] Pulse Rate [orthos tatic standing Rig ht Pulse Oximeter] Respiratory Rate 15 13 13 Blood Pressure Blood Pressure [Ri ght Arm] Blood Pressure [or thostatic lying Ri ght Arm] Blood Pressure [or thostatic sitting Right Arm] Blood Pressure [or thostatic standing Right Arm] Pulse Oximetry Oxygen Delivery Me thod 06/05/25 12:32 06/05/25 12:45 06/05/25 13:00 Temperature Pulse Rate 65 Pulse Rate [Left P ulse Oximeter] Pulse Rate [orthos tatic lying Right Pulse Oximeter] Pulse Rate [orthos tatic sitting Righ t Pulse Oximeter] Pulse Rate [orthos tatic standing Rig ht Pulse Oximeter] Respiratory Rate 16 14 13 Blood Pressure 140/88 H Blood Pressure [Ri ght Arm] Blood Pressure [or thostatic lying Ri ght Arm] Blood Pressure [or thostatic sitting Right Arm] Blood Pressure [or thostatic standing Right Arm] Pulse Oximetry [address]od 06/05/25 13:02 06/05/25 13:03 06/05/25 13:05 Temperature 96.6 F L 96.6 F L Pulse Rate 61 61 62 Pulse Rate [Left P ulse Oximeter] Pulse Rate [orthos tatic lying Right Pulse Oximeter] Pulse Rate [orthos tatic sitting Righ t Pulse Oximeter] Pulse Rate [orthos tatic standing Rig ht Pulse Oximeter] Respiratory Rate 14 16 16 Blood Pressure 157/61 H 157/61 H Blood Pressure [Ri ght Arm] Blood Pressure [or thostatic lying Ri ght Arm] Blood Pressure [or thostatic sitting Right Arm] Blood Pressure [or thostatic standing Right Arm] Pulse Oximetry 98 97 99 Oxygen Delivery Me thod Room Air 06/05/25 13:15 06/05/25 13:22 06/05/25 13:24 Temperature 97.2 F L Pulse Rate 63 62 62 Pulse Rate [Left P ulse Oximeter] Pulse Rate [orthos tatic lying Right Pulse Oximeter] Pulse Rate [orthos tatic sitting Righ t Pulse Oximeter] Pulse Rate [orthos tatic standing Rig ht Pulse Oximeter] Respiratory Rate 14 16 16 Blood Pressure 147/61 H 147/61 H Blood Pressure [Ri ght Arm] Blood Pressure [or thostatic lying Ri ght Arm] Blood Pressure [or thostatic sitting Right Arm] Blood Pressure [or thostatic standing Right Arm] Pulse Oximetry [address] Room Air 06/05/25 13:30 06/05/25 13:33 06/05/25 13:45 Temperature Pulse Rate 64 62 66 Pulse Rate [Left P ulse Oximeter] Pulse Rate [orthos tatic lying Right Pulse Oximeter] Pulse Rate [orthos tatic sitting Righ t Pulse Oximeter] Pulse Rate [orthos tatic standing Rig ht Pulse Oximeter] Respiratory Rate 28 H 6 L 24 Blood Pressure 152/55 H Blood Pressure [Ri ght Arm] Blood Pressure [or thostatic lying Ri ght Arm] Blood Pressure [or thostatic sitting Right Arm] Blood Pressure [or thostatic standing Right Arm] Pulse Oximetry 98 99 99 Oxygen Delivery Me thod 06/05/25 13:52 06/05/25 14:00 06/05/25 14:02 Temperature 97.4 F L Pulse Rate 65 63 63 Pulse Rate [Left P ulse Oximeter] Pulse Rate [orthos tatic lying Right Pulse Oximeter] Pulse Rate [orthos tatic sitting Righ t Pulse Oximeter] Pulse Rate [orthos tatic standing Rig ht Pulse Oximeter] Respiratory Rate 16 19 17 Blood Pressure 148/73 H 148/73 H Blood Pressure [Ri ght Arm] Blood Pressure [or thostatic lying Ri ght Arm] Blood Pressure [or thostatic sitting Right Arm] Blood Pressure [or thostatic standing Right Arm] Pulse Oximetry 99 99 99 Oxygen Delivery Me thod Room Air 06/05/25 14:15 06/05/25 14:22 06/05/25 14:40 Temperature 97.1 F L Pulse Rate 63 71 Pulse Rate [Left P ulse Oximeter] Pulse Rate [orthos tatic lying Right Pulse Oximeter] Pulse Rate [orthos tatic sitting Righ t Pulse Oximeter] Pulse Rate [orthos tatic standing Rig ht Pulse Oximeter] Respiratory Rate 19 20 20 Blood Pressure 167/64 H Blood Pressure [Ri ght Arm] Blood Pressure [or thostatic lying Ri ght Arm] Blood Pressure [or thostatic sitting Right Arm] Blood Pressure [or thostatic standing Right Arm] Pulse Oximetry 99 99 99 Oxygen Delivery Me thod Room Air Room Air 06/05/25 14:52 06/05/25 15:00 06/05/25 15:22 Temperature 96.1 F L 97.1 F L Pulse Rate 65 67 Pulse Rate [Left P ulse Oximeter] 70 Pulse Rate [orthos tatic lying Right Pulse Oximeter] Pulse Rate [orthos tatic sitting Righ t Pulse Oximeter] Pulse Rate [orthos tatic standing Rig ht Pulse Oximeter] Respiratory Rate 18 18 Blood Pressure 136/57 L 149/64 H Blood Pressure [Ri ght Arm] Blood Pressure [or thostatic lying Ri ght Arm] Blood Pressure [or thostatic sitting Right Arm] Blood Pressure [or thostatic standing Right Arm] Pulse Oximetry 99 98 Oxygen Delivery Me thod Room Air Room Air 06/05/25 15:43 06/05/25 16:09 06/05/25 16:40 Temperature 96.9 F L 97.0 F L 97.8 F Pulse Rate 70 66 66 Pulse Rate [Left P ulse Oximeter] Pulse Rate [orthos tatic lying Right Pulse Oximeter] Pulse Rate [orthos tatic sitting Righ t Pulse Oximeter] Pulse Rate [orthos tatic standing Rig ht Pulse Oximeter] Respiratory Rate 20 18 16 Blood Pressure 141/62 H 132/58 L 141/59 H Blood Pressure [Ri ght Arm] Blood Pressure [or thostatic lying Ri ght Arm] Blood Pressure [or thostatic sitting Right Arm] Blood Pressure [or thostatic standing Right Arm] Pulse Oximetry 99 99 99 Oxygen Delivery Me thod Room Air Room Air Room Air 06/05/25 16:58 06/05/25 17:10 06/05/25 17:46 Temperature 98.2 F 96.5 F L Pulse Rate 69 68 67 Pulse Rate [Left P ulse Oximeter] Pulse Rate [orthos tatic lying Right Pulse Oximeter] Pulse Rate [orthos tatic sitting Righ t Pulse Oximeter] Pulse Rate [orthos tatic standing Rig ht Pulse Oximeter] Respiratory Rate 18 18 Blood Pressure 150/62 H 150/64 H Blood Pressure [Ri ght Arm] Blood Pressure [or thostatic lying Ri ght Arm] Blood Pressure [or thostatic sitting Right Arm] Blood Pressure [or thostatic standing Right Arm] Pulse Oximetry 97 97 Oxygen Delivery Me thod Room Air Room Air 06/05/25 18:10 06/05/25 18:10 06/05/25 19:00 Temperature 96.5 F L 97.8 F Pulse Rate 76 Pulse Rate [Left P ulse Oximeter] 71 Pulse Rate [orthos tatic lying Right Pulse Oximeter] 66 Pulse Rate [orthos tatic sitting Righ t Pulse Oximeter] 69 Pulse Rate [orthos tatic standing Rig ht Pulse Oximeter] 76 Respiratory Rate 18 18 Blood Pressure 163/74 H Blood Pressure [Ri ght Arm] 139/62 Blood Pressure [or thostatic lying Ri ght Arm] 145/62 H Blood Pressure [or thostatic sitting Right Arm] 160/70 H Blood Pressure [or thostatic standing Right Arm] 163/74 H Pulse Oximetry 99 98 Oxygen Delivery Me thod Room Air Room Air 06/05/25 22:50 06/05/25 22:50 06/05/25 23:00 Temperature 97.6 F Pulse Rate 63 Pulse Rate [Left P ulse Oximeter] 65 65 Pulse Rate [orthos tatic lying Right Pulse Oximeter] Pulse Rate [orthos tatic sitting Righ t Pulse Oximeter] Pulse Rate [orthos tatic standing Rig ht Pulse Oximeter] Respiratory Rate 18 18 Blood Pressure Blood Pressure [Ri ght Arm] 127/60 Blood Pressure [or thostatic lying Ri ght Arm] Blood Pressure [or thostatic sitting Right Arm] Blood Pressure [or thostatic standing Right Arm] Pulse Oximetry 96 Oxygen Delivery Me thod Room Air 06/06/25 02:50 06/06/25 07:32 06/06/25 07:45 Temperature 97.6 F 97.8 F Pulse Rate 59 L Pulse Rate [Left P ulse Oximeter] 75 63 Pulse Rate [orthos tatic lying Right Pulse Oximeter] Pulse Rate [orthos tatic sitting Righ t Pulse Oximeter] Pulse Rate [orthos tatic standing Rig ht Pulse Oximeter] Respiratory Rate 18 18 Blood Pressure Blood Pressure [Ri ght Arm] 125/57 L 146/65 H Blood Pressure [or thostatic lying Ri ght Arm] Blood Pressure [or thostatic sitting Right Arm] Blood Pressure [or thostatic standing Right Arm] Pulse Oximetry 99 99 Oxygen Delivery Me thod Room Air Room Air 06/06/25 09:00 06/06/25 09:34 06/06/25 09:57 Temperature 97.9 F 97.8 F Pulse Rate 58 L 63 Pulse Rate [Left P ulse Oximeter] 75 Pulse Rate [orthos tatic lying Right Pulse Oximeter] Pulse Rate [orthos tatic sitting Righ t Pulse Oximeter] Pulse Rate [orthos tatic standing Rig ht Pulse Oximeter] Respiratory Rate 18 18 Blood Pressure 155/60 H 123/54 L Blood Pressure [Ri ght Arm] Blood Pressure [or thostatic lying Ri ght Arm] Blood Pressure [or thostatic sitting Right Arm] Blood Pressure [or thostatic standing Right Arm] Pulse Oximetry 99 99 Oxygen Delivery Me thod Room Air Room Air 06/06/25 10:26 Temperature 98 F Pulse Rate 63 Pulse Rate [Left P ulse Oximeter] Pulse Rate [orthos tatic lying Right Pulse Oximeter] Pulse Rate [orthos tatic sitting Righ t Pulse Oximeter] Pulse Rate [orthos tatic standing Rig ht Pulse Oximeter] Respiratory Rate 18 Blood Pressure 117/50 L Blood Pressure [Ri ght Arm] Blood Pressure [or thostatic lying Ri ght Arm] Blood Pressure [or thostatic sitting Right Arm] Blood Pressure [or thostatic standing Right Arm] Pulse Oximetry 97 Oxygen Delivery Me thod Room Air Documenting provider has reviewed patient's vital signs: yes Labs Labs: Laboratory Results - last 24 hr 06/05/25 06/05/25 06/05/25 10:05 11:43 12:00 WBC 3.88 L RBC 1.62 L Hgb 6.4 L* Hct 18.2 L MCV 112 H MCH 40 H MCHC 35 RDW Coeff of Edin 18.8 H Plt Count 50 L Neut % (Auto) 10.7 L Lymph % (Auto) 55.2 H [place] % (Auto) 32.5 H Eos % (Auto) 1.0 Baso % (Auto) 0.3 Neut # (Auto) 0.40 L Lymph # (Auto) 2.10 [place] # (Auto) 1.30 H Eos # (Auto) 0.00 Baso # (Auto) 0.00 Abs Immat Gran (auto) 0.00 Imm/Tot Granulo (auto) 0.3 Diff Slide Review Acceptable Review ESR 86 H Absolute Retic Percent Retic Immature Retic Fraction Retic Hgb Equivalent D-Dimer Quant (PE/DVT) 0.83 H Sodium 134 L Potassium 3.9 Chloride 99 Carbon Dioxide 25 Anion Gap 10 BUN 29 Creatinine 1.2 Estimated Creat Clear 35.20 Estimated GFR 45 Glucose 144 H Calcium 9.7 Total Bilirubin Lactate Dehydrogenase Troponin I C-Reactive Protein < 0.5 L NT-Pro-B Natriuret Pep 323 H TSH 2.160 Stool Occult Blood Negative Lab Acknowledgement Test Added Blood Type A Positive Antibody Screen NEGATIVE Crossmatch ([facility]) See Detail 06/05/25 06/05/25 06/06/25 12:35 18:23 05:28 WBC 2.44 L RBC 2.08 L Hgb 8.4 L 7.4 L* Hct 21.2 L MCV 102 H MCH 36 H MCHC 35 RDW Coeff of Edin 22.0 H Plt Count 24 L* Neut % (Auto) 15.5 L Lymph % (Auto) 36.7 [place] % (Auto) 46.6 H Eos % (Auto) 0.4 Baso % (Auto) 0.4 Neut # (Auto) 0.40 L Lymph # (Auto) 0.92 [place] # (Auto) 1.10 H Eos # (Auto) 0.01 Baso # (Auto) 0.01 Abs Immat Gran (auto) 0.01 Imm/Tot Granulo (auto) 0.4 Diff Slide Review ESR Absolute Retic 0.04 Percent Retic 2.0 Immature Retic Fraction 21.3 H Retic Hgb Equivalent 42.5 H D-Dimer Quant (PE/DVT) Sodium 134 L Potassium 3.8 Chloride 103 Carbon Dioxide 23 Anion Gap 8 BUN 38 H Creatinine 1.2 Estimated Creat Clear 35.20 Estimated GFR 45 Glucose 154 H Calcium 8.9 Total Bilirubin 1.7 H Lactate Dehydrogenase 166 Troponin I < 0.01 C-Reactive Protein NT-Pro-B Natriuret Pep TSH Stool Occult Blood Lab Acknowledgement Blood Type Antibody Screen Crossmatch ([facility]) 06/06/25 06/06/25 09:15 09:33 WBC RBC Hgb Hct MCV MCH MCHC RDW Coeff of Eidn Plt Count Neut % (Auto) Lymph % (Auto) [place] % (Auto) Eos % (Auto) Baso % (Auto) Neut # (Auto) Lymph # (Auto) [place] # (Auto) Eos # (Auto) Baso # (Auto) Abs Immat Gran (auto) Imm/Tot Granulo (auto) Diff Slide Review ESR Absolute Retic Percent Retic Immature Retic Fraction Retic Hgb Equivalent D-Dimer Quant (PE/DVT) Sodium Potassium Chloride Carbon Dioxide Anion Gap BUN Creatinine Estimated Creat Clear Estimated GFR Glucose Calcium Total Bilirubin Lactate Dehydrogenase Troponin I C-Reactive Protein NT-Pro-B Natriuret Pep TSH Stool Occult Blood Lab Acknowledgement Test Added Test Added Blood Type Antibody Screen Crossmatch ([facility])
[2025-06-06 10:56] LABS: Vitamin B12* 946 pg/mL (243-894)
[2025-06-06 14:27] LABS: Hematocrit* 31.8 % (33.0-51.0); Hemoglobin* 10.9 gm/dL (12.0-16.0); Immature Granulocytes Abs Auto 0.01 K/uL (0.00-0.30); Immature Granulocytes Pct Auto 0.2 %; Mean Corpuscular HGB Conc 34 gm/dL (32-36); Mean Corpuscular Hemoglobin 33 pg (26-34); Mean Corpuscular Volume 97 fL (80-100); RDW Coefficient of Variation % 20.4 % (11.5-15.5); Red Blood Count* 3.28 m/uL (4.00-5.20); White Blood Count* 4.90 K/uL (4.50-11.00)
[2025-06-06 14:45] LABS: Slide Review Reflex Yes
--- NOTE | 2025-06-06 15:02 | PC.NURSE ---
End of shift [id number]: Pt AxOx3, cooperative, and pleasant with cares. Denies pain. LSCTA on RA. VSS. Two IVs to the R arm. Blood transfusion ongoing. Second unit being administered. Pt tolerating well. Denies CP/nausea/itchiness/SOB. SBA to the bathroom, reporting minimal dizziness. Refused lunch, education given. Call light within reach. Family visited this afternoon.
[2025-06-06 15:49] LABS: Lymphocytes Absolute Auto 3.10 K/uL (0.90-2.90)
[2025-06-06 15:51] LABS: Slide Review Acceptable Review (Acceptable)
--- NOTE | 2025-06-06 18:56 | PC.NURSE ---
The patient finished 1 unit on my shift and then received another unit of PRBC on my shift. No reaction noted, no side effects reported by the patient. VSS on RA. The patient ate 100% of her dinner and is hoping to sleep tonight. Dizziness is still reported with position changes. Cori HECK BSN
[2025-06-07] VITALS (9 sets, daily range): BP systolic 119–165; BP diastolic 57–84; PULSE 52–62; RESP 12–19; TEMP 35.9–36.7; O2SAT 97–100; BMI 22.7
--- NOTE | 2025-06-07 04:37 | PC.NURSE ---
Shift note: Patient is doing well tonight. Confirmed gaining strength. Ambulated independently to bathroom. At 2100, Melatonin 6mg was given to patient since patient could not sleep the previous night and day. This was effective as patient slept well until 0300. Alert and oriented, vitally stable. Patient continue to have ringing n the ears. No pain reported. No post transfusion reaction.
[2025-06-07] MEDS: LEVOTHYROXINE 125 MCG TABLET PO (06:25)
[2025-06-07 07:09] LABS: Hematocrit* 31.4 % (33.0-51.0); Hemoglobin* 11.1 gm/dL (12.0-16.0); Mean Corpuscular HGB Conc 35 gm/dL (32-36); Mean Corpuscular Hemoglobin 33 pg (26-34); Mean Corpuscular Volume 94 fL (80-100); Red Blood Count* 3.35 m/uL (4.00-5.20); White Blood Count* 3.81 K/uL (4.50-11.00)
[2025-06-07 07:16] LABS: Slide Review Reflex No
[2025-06-07 07:27] LABS: Chloride* 105 mmol/L (96-114); Sodium* 136 mmol/L (135-149)
[2025-06-07 07:28] LABS: Potassium* 3.4 mmol/L (3.6-5.1)
[2025-06-07 07:30] LABS: Blood Urea Nitrogen* 39 mg/dL (7-30); Creatinine* 1.1 mg/dL (0.5-1.5); Est. Creatinine Clearance* 38.40; Estimated Glomerular Filt Rate 50 ml/min
[2025-06-07 07:31] LABS: Anion Gap 6 mEq/L (7-15); Calcium* 9.0 mg/dL (8.4-10.6); Carbon Dioxide* 25 mmol/L (20-32); Glucose* 111 mg/dL (60-115)
[2025-06-07] MEDS: SODIUM CHLORIDE 0.9 % (FLUSH) 10 ML SYRINGE 5 ML IVF (08:33)
--- NOTE | 2025-06-07 10:29 | PM.DS1 ---
DS: Providers Provider Date Seen: 06/07/25 Date of admission: 06/05/25 16:27 Primary care physician: Iqra Cardozo DO Admitting Clinician: Annalee Golden MD Attending Physician on discharge: Mario Shaw MD Date of Discharge: 06/07/25 DS: Diagnosis Discharge Diagnosis (1) Pancytopenia: Status: Acute Problem details: More likely causes include leukemia with atypical lymphocytes or other bone marrow failure. Bone marrow biopsy pending June 07 in the afternoon. Needs urgent outpatient hematology evaluation. No evidence for hemolysis or acute blood loss. Vitamin B12 and TSH levels normal (2) Stage 3a chronic kidney disease (CKD): Status: Acute Problem details: - creatinine 1.2 with GFR 45, baseline 1.0-1.29 with GFR 41 -51 - monitor (3) Hypothyroidism: Status: Acute Problem details: - continue levothyroxine - TSH 2.1 (4) Tinnitus: Status: Acute Problem details: Longstanding problem having been evaluated as long ago as 2005. Likely worse now due to severe anemia (5) Dyspnea: Status: Acute Problem details: Appears to have resolved with blood transfusion. (6) Prediabetes: Status: Acute Problem details: - most recent A1c 5.7, February 2025 DS: Summary Hospital Course Hospital Course: Cecilia Max is a 84 year old female past medical history significant for CKD stage IIIA, hypothyroidism, hyperlipidemia, hypertension, prediabetes, breast cancer 1989 is admitted to the hospital with a 7+ weeks of exertional dyspnea, pulsatile tinnitus, weakness and fatigue. On admission she was found to have pancytopenia with a hemoglobin of 6.4[place] [address] in, absolute neutrophil count of 400 and lymphocyte count of 2100. Her MCV was 112. Peripheral smear preliminary report:RBCs Moderate macrocytes, microcytes, polychromasia, ovalocytes, fragments, spherocytes.WBC's Many reactive/abnormal lymphocytes. No history of blood disorder, recent chemotherapy, or bleeding. She received transfusion of 2 units of red blood cells. This morning her hemoglobin is 7.4 [place] [address]. She reports feeling significantly better today. Still has a mild amount of pulsatile tinnitus and mild dyspnea with activity but no dyspnea at rest. She has had no fever or symptoms of infectious illness recently. In reviewing past medical history I see that she has had a normal CBC in October of 202406/07/2025: Patient reports a little headache today and a little nausea but otherwise feeling well. No more dyspnea. No fever. She tolerated total of 4 units PRBCs transfused yesterday. Hemoglobin 11 today. Platelets 24. White blood count 3.8, mostly lymphocytes. Status at Discharge Functional status at discharge: independent ambulation Overall status at discharge: patient is not back to baseline Time Spent with Patient Time attestation: Total time spent providing and/or coordinating discharge services: 60 minutes Exam Narrative: Exam Narrative: She is alert and appears in no distress. She gives her own history. Oriented to her circumstances. Breathing is unlabored. Const: Vital Signs, click to edit/add: Vital Signs - 24 hr 06/06/25 10:57 06/06/25 11:28 06/06/25 12:02 Temperature 97.4 F L 97.5 F L 97.5 F L Pulse Rate 61 70 61 Pulse Rate [Left P ulse Oximeter] Respiratory Rate 18 16 18 Blood Pressure 130/56 L 133/59 L 123/52 L Blood Pressure [Ri ght Arm] Pulse Oximetry 99 100 98 [facility] Room Air Room Air 06/06/25 12:26 06/06/25 12:50 06/06/25 13:14 Temperature 97.8 F 97.7 F 98.4 F Pulse Rate 71 61 70 Pulse Rate [Left P ulse Oximeter] Respiratory Rate 16 18 18 Blood Pressure 122/55 L 131/50 L 120/58 L Blood Pressure [Ri ght Arm] Pulse Oximetry 99 100 98 [facility] Room Air Room Air 06/06/25 13:29 06/06/25 13:56 06/06/25 14:29 Temperature 97.6 F 97.1 F L 97.3 F L Pulse Rate 69 62 59 L Pulse Rate [Left P ulse Oximeter] Respiratory Rate 18 18 18 Blood Pressure 113/65 130/61 127/60 Blood Pressure [Ri ght Arm] Pulse Oximetry 99 100 100 [facility] Room Air Room Air 06/06/25 14:59 06/06/25 15:00 06/06/25 15:15 Temperature 98.1 F 97.1 F L Pulse Rate 56 L 62 60 Pulse Rate [Left P ulse Oximeter] Respiratory Rate 16 16 Blood Pressure 126/62 123/80 Blood Pressure [Ri ght Arm] Pulse Oximetry 98 99 Oxygen Delivery Me thod Room Air Room Air 06/06/25 16:15 06/06/25 16:36 06/06/25 16:52 Temperature 97.0 F L 97.0 F L 97.1 F L Pulse Rate 55 L 50 L 53 L Pulse Rate [Left P ulse Oximeter] Respiratory Rate 16 16 16 Blood Pressure 134/60 137/65 142/83 H Blood Pressure [Ri ght Arm] Pulse Oximetry 98 100 100 Oxygen Delivery Me thod Room Air Room Air 06/06/25 17:22 06/06/25 17:52 06/06/25 18:30 Temperature 97.1 F L 97.3 F L 97.3 F L Pulse Rate 60 59 L 65 Pulse Rate [Left P ulse Oximeter] Respiratory Rate 16 16 16 Blood Pressure 137/66 142/69 H 145/70 H Blood Pressure [Ri ght Arm] Pulse Oximetry 100 100 100 Oxygen Delivery Me thod Room Air Room Air Room Air 06/06/25 18:35 06/06/25 19:00 06/06/25 19:44 Temperature 97.6 F 97.6 F Pulse Rate 65 Pulse Rate [Left P ulse Oximeter] 60 Respiratory Rate 16 16 Blood Pressure 135/60 133/62 Blood Pressure [Ri ght Arm] 133/62 Pulse Oximetry 99 99 Oxygen Delivery Me thod Room Air Room Air 06/06/25 23:00 06/06/25 23:00 06/06/25 23:00 Temperature 97.6 F Pulse Rate 59 L Pulse Rate [Left P ulse Oximeter] 57 L 57 L Respiratory Rate 16 16 Blood Pressure Blood Pressure [Ri ght Arm] Pulse Oximetry 99 Oxygen Delivery Me thod Room Air 06/07/25 03:00 06/07/25 08:27 Temperature 96.7 F L 97.5 F L Pulse Rate Pulse Rate [Left P ulse Oximeter] 62 60 Respiratory Rate 16 16 Blood Pressure Blood Pressure [Ri ght Arm] 138/63 158/84 H Pulse Oximetry 97 99 Oxygen Delivery Me thod Room Air Room Air DS: Data Data Completed and Pending Labs on day of discharge: Labs from last 24 hours 06/07/25 06/06/25 06/06/25 06:10 14:11 05:28 WBC 3.81 L 4.90 RBC 3.35 L 3.28 L Hgb 11.1 L 10.9 L Hct 31.4 L 31.8 L MCV 94 97 MCH 33 33 MCHC 35 34 RDW Coeff of Edin 20.4 H Plt Count 24 L* 32 L* Neut % (Auto) 13.0 L Lymph % (Auto) 64.0 H [place] % (Auto) 23.0 H Eos % (Auto) 0.0 Baso % (Auto) 0.2 Neut # (Auto) 0.60 L Lymph # (Auto) 3.10 H [place] # (Auto) 1.10 H Eos # (Auto) 0.00 Baso # (Auto) 0.01 Abs Immat Gran (auto) 0.01 Imm/Tot Granulo (auto) 0.2 Diff Slide Review Acceptable Review Absolute Retic Cancelled Percent Retic Cancelled Immature Retic Fraction Cancelled Retic Hgb Equivalent Cancelled Sodium 136 Potassium 3.4 L Chloride 105 Carbon Dioxide 25 Anion Gap 6 L BUN 39 H Creatinine 1.1 Estimated Creat Clear 38.40 Estimated GFR 50 Glucose 111 Haptoglobin Pending Calcium 9.0 Lactate Dehydrogenase 186 Vitamin B12 946 H TSH 0.523 Blood Type Antibody Screen Crossmatch ([facility]) 06/05/25 11:43 WBC RBC Hgb Hct MCV MCH MCHC RDW Coeff of [place] Plt Count Neut % (Auto) Lymph % (Auto) [place] % (Auto) Eos % (Auto) Baso % (Auto) Neut # (Auto) Lymph # (Auto) [place] # (Auto) Eos # (Auto) Baso # (Auto) Abs Immat Gran (auto) Imm/Tot Granulo (auto) Diff Slide Review Absolute Retic Percent Retic Immature Retic Fraction Retic Hgb Equivalent Sodium Potassium Chloride Carbon Dioxide Anion Gap BUN Creatinine Estimated Creat Clear Estimated GFR Glucose Haptoglobin Calcium Lactate Dehydrogenase Vitamin B12 TSH Blood Type A Positive Antibody Screen NEGATIVE Crossmatch ([facility]) See Detail Imaging Chest x-ray: Radiologist's impression: INDICATION: Cough, dyspnea, chest discomfort COMPARISON: None. TECHNIQUE: PA and lateral 2 view chest. FINDINGS: Lung volumes are good. 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 No other focal or diffuse opacities. No pulmonary edema. No pleural effusion. No pneumothorax. No pneumomediastinum. Normal cardiomediastinal silhouette. Atherosclerosis. Bones: Normal for age. IMPRESSION: No acute appearing thoracic findings. Discharge Plan Discharge Disposition: Home, Self-Care Date of Admission: 06/05/25 16:27 Attending Provider on Discharge: Juan Carlos Shaw Primary Care Provider: Iqra Cardozo Condition: Improved Anticipated Discharge Date/Time: 06/07/25 16:00 Discharge Medications: Continued atenolol 100 mg tablet 100 mg PO DAILY levothyroxine 125 mcg tablet 125 mcg PO DAILY triamterene-hydrochlorothiazid 37.5-25 mg tablet 1 tab PO DAILY ondansetron 4 mg tablet,disintegrating 4 mg PO Q8H PRN (Reason: nausea/vomiting) tramadol 50 mg tablet 50 mg PO DAILY PRN (Reason: severe pain) Discharge Orders: Discharge Order (Routine); Ordered 06/07/25 Ordered By: Kaci Devlin Patient Education: Bone Marrow Biopsy MAC (DC) Activity Level: Activity as Tolerated Discharge Diet: Regular Follow Up Appointments: Keya Mckeon MD [Referring, Hematology] Referral Note: Appointment next week: [place] [id number] Please call clinic to set up this appointment Iqra Cardozo DO [Primary Care Provider, Family Practice] - 06/14/25 11:00 am Referral Note: [facility] for follow up 06/14 at 11am Forms: [facility], [facility] Instructions
[2025-06-07] MEDS: 0.9 % SODIUM CH + KCL 20 mEq/L 1,000 ML 100 ML IV (11:56)
[2025-06-07 12:06] LABS: Immature Granulocytes Abs Auto 0.00 K/uL (0.00-0.30); Immature Granulocytes Pct Auto 0.0 %; Immature Reticulocyte Fraction 25.4 % (3.0-15.9); Lymphocytes Absolute Auto 1.59 K/uL (0.90-2.90); RDW Coefficient of Variation % 21.1 % (11.5-15.5); Reticulocyte Hemoglobin Equivi 38.7 pg (29.0-35.0); Reticulocytes Absolute 0.04 # (0.03-0.08)
--- NOTE | 2025-06-07 14:16 | P.ANES_ITS ---
Anesthesia Charges Start Date/Time Anesthesia Start Date: 06/07/25 Anesthesia Start Time: 14:00 Stop Date/Time Anesthesia Stop Date: 06/07/25 Anesthesia Stop Time: 14:12 Summary Extremes of Age - Over 70 or under 1: LEARNING SUPPORT RESOURCE ROOM TEACHER Coding CPT Codes CPT Codes: ANESTH BONE ASPIRATE/BX - 14413 ([id number]) P3 - PATIENT W/SEVERE SYS DISEASE, QK - RIGGER 2-4 CNCRNT ANES PROC, QX - LEARNING SUPPORT RESOURCE ROOM TEACHER SVC W/ MD MED DIRECTION Additional Codes: Summary - Extremes of Age - Over 70 or under 1: LEARNING SUPPORT RESOURCE ROOM TEACHER ([id number])
--- NOTE | 2025-06-07 14:16 | W.ANESCHARGE ---
Anesthesia Charges Start Date/Time Anesthesia Start Date: 06/07/25 Anesthesia Start Time: 14:00 Stop Date/Time Anesthesia Stop Date: 06/07/25 Anesthesia Stop Time: 14:12 Summary Extremes of Age - Over 70 or under 1: IRONER OR PRESSER Coding CPT Codes CPT Codes: ANESTH BONE ASPIRATE/BX - 45007 ([id number]) P3 - PATIENT W/SEVERE SYS DISEASE, QK - COMPENSATION ANALYST 2-4 CNCRNT ANES PROC, QX - IRONER OR PRESSER SVC W/ MD MED DIRECTION Additional Codes: Summary - Extremes of Age - Over 70 or under 1: IRONER OR PRESSER ([id number])
--- NOTE | 2025-06-07 14:20 | P.ANES_ITS ---
Anesthesia Charges Start Date/Time Anesthesia Start Date: 06/07/25 Anesthesia Start Time: 14:00 Stop Date/Time Anesthesia Stop Date: 06/07/25 Anesthesia Stop Time: 14:12 Summary Extremes of Age - Over 70 or under 1: MDA Coding CPT Codes CPT Codes: ANESTH BONE ASPIRATE/BX - 73149 ([id number]) QK - PRICER BAGGER 2-4 CNCRNT ANES PROC, QX - RV PARTS AND SERVICE DIRECTOR SVC W/ MD MED DIRECTION, P3 - PATIENT W/SEVERE SYS DISEASE Additional Codes: Summary - Extremes of Age - Over 70 or under 1: MDA ([id number])
--- NOTE | 2025-06-07 14:20 | W.ANESCHARGE ---
Anesthesia Charges Start Date/Time Anesthesia Start Date: 06/07/25 Anesthesia Start Time: 14:00 Stop Date/Time Anesthesia Stop Date: 06/07/25 Anesthesia Stop Time: 14:12 Summary Extremes of Age - Over 70 or under 1: MDA Coding CPT Codes CPT Codes: ANESTH BONE ASPIRATE/BX - 74502 ([id number]) QK - HAND INSERTER OPERATOR 2-4 CNCRNT ANES PROC, QX - PLATING TANK OPERATOR SVC W/ MD MED DIRECTION, P3 - PATIENT W/SEVERE SYS DISEASE Additional Codes: Summary - Extremes of Age - Over 70 or under 1: MDA ([id number])
--- NOTE | 2025-06-07 14:25 | PC.SOCIAL ---
Discharge planning: aquacultural worker supervisor completed the Initial Psychosocial Assessment with the pt...see the below answers... Initial Psychosocial Assessment: 1.? Assessment completed with: Patient, Spouse, Child, Friend, Other: Patient and her adult daughter. 2.? Pt lives at address and phone number on face sheet? Own home; facility , Other: Pt lives in her own house alone. Sons live close by. 3.?Insurance information? on face sheet is correct? Yes. 4.?Contacts? on face sheet are correct? Yes. 5.? Does pt have a Healthcare Directive, POLST or Guardian? Yes. 6.? Who is the pt?s main source/sources of emotional/physical support? Children, grandchildren, taoist. 7.? Prior to admission did pt need assistance? Yes/No No. 8.? Who provided and what was the assistance needed? N/A. 9.? Was Home Health being provided, by what agency? No. 10. Does pt use/have medical equipment at home already? What? Not really. Has some adaptive equipment if needed. 11. Will there be a need for additional assistance at discharge and is this available in previous setting? Most likely not at this time. 12. If pt needs to go to a higher level of care, are they open to this and do they have facilities they are interested in? N/A. 13. How would pt plan to transport at discharge? Either daughter or son. 14. Is there anyone pt would like group social worker to contact to discuss discharge plans? Children.
[2025-06-07] MEDS: ACETAMINOPHEN 325 MG TABLET PO (15:06)
--- NOTE | 2025-06-07 17:54 | PC.NURSE ---
The patient discharged home with her daughter this evening. Discharge instructions were reviewed regarding biposy site, S/S to follow up on and the appointments for the patient. The patient is to call [facility] tomorrow regarding hematology appointment to see if it has been booked already. All questions were answered and belongings were sent home with the patient. Cori DEL REALN
[2025-06-07 18:45] LABS: Folate, Serum 16.0 ng/mL (>=5.9)
== END 2025-06-07 17:40 | disposition home or self-care (01) | DRG 810 ==
LOC: ED 11:18 → MEDSURG 14:20
PROVIDERS: Family Medicine; Physician Assistant; Admitting Provider Student in an Organized Health Care Education/Training Program; Emergency Provider Emergency Medicine; PCP Family Medicine; Visit Provider Student in an Organized Health Care Education/Training Program
DX: D61.818 Other pancytopenia (principal); D64.9 Anemia, unspecified; D69.6 Thrombocytopenia, unspecified; I12.9 Hypertensive chronic kidney disease with stage 1 through stage 4 chronic kidney disease, or unspecified chronic kidney disease; N18.31 Chronic kidney disease, stage 3a; J84.10 Pulmonary fibrosis, unspecified; E03.9 Hypothyroidism, unspecified; H93.13 Tinnitus, bilateral; R73.03 Prediabetes; Z85.3 Personal history of malignant neoplasm of breast; E78.5 Hyperlipidemia, unspecified
CPT/HCPCS: 01112; 36415; 36430; 38222; 71046; 80048; 82247; 82270; 82607; 82746; 83010; 83605; 83615; 83880; 84443; 84484; 85018; 85025; 85027; 85045; 85379; 85651; 86140; 86850; 86900; 86901; 86922; 93005; 99100; 99285; A9270; J2704; J2919; J7030; P9016